=== PATIENT | female | born 1945 | race African-American/Black ===

== ENCOUNTER 2016-10-22 08:29 | Inpatient (IN) | payer OTHER ==
[2016-10-22 08:44] VITALS: BMI 20.5
[2016-10-22] MEDS ORDERED: PANTOPRAZOLE SODIUM 40 MG in SODIUM CHLORIDE 100 ML IVPB ONE (09:21)
[2016-10-22] MEDS ORDERED: MAG HYDROX/AL HYDROX/SIMETH 355 ML ORAL.SUSP PO ONE (09:21)
[2016-10-22 09:22] LABS: EOSINOPHIL 0.5 % (0-4.5); MCH 24.7 pg (25.7-33.7); MCHC 33.2 g/dl (32.0-36.0); MEAN CELL VOLUME 74.5 fl (80-96); MEAN PLT VOLUME 8.5 fl (7.5-11.1); NEUTROPHILS 79.4 % (42.8-82.8); PLATELET COUNT 213 K/MM3 (134-434); RDW 18.5 % (11.6-15.6); WHITE BLOOD COUNT 7.4 K/mm3 (4.0-10.0)
[2016-10-22 09:28] LABS: URINE APPEARANCE CLEAR; URINE BILIRUBIN NEGATIVE (NEGATIVE); URINE BLOOD NEGATIVE (NEGATIVE); URINE COLOR LTYELLOW; URINE GLUCOSE (UA) NEGATIVE (NEGATIVE); URINE KETONE NEGATIVE (NEGATIVE); URINE LEUK ESTERASE NEGATIVE (NEGATIVE); URINE NITRITE NEGATIVE (NEGATIVE); URINE UROBILINOGEN NEGATIVE E.U./dl (0.2-1.0)
[2016-10-22 09:30] LABS: URINE PROTEIN 2+ (NEGATIVE)
--- NOTE | 2016-10-22 09:31 | PDOC ---
History of Present Illness - General Chief Complaint: Pain, Acute Stated Complaint: ABD PAIN Time Seen by Provider: 10/22/16 08:56 History Source: Patient Exam Limitations: Language Barrier - History of Present Illness Travel History: No Initial Comments: 10/22/16 10:17 71-year-old female history of htn, gerd, sickle cell/thalassemia, presenst with LUQ pain x 1 month ago but worsened over the past 2 days - pt states when she eats she feels nauseus, the pain use to come and go but now is more persisetnt. The pt denies any vomiting, diaphoresis, fever/chills, dysuria, diarrhea, melena , bpr. The pt notes her pain is associated whith BENITEZ. pt endorses having decraesed appetite since this started pt notes her pain was similar to the pain that she had a few years ago here in the hospital. pts history was taken with assistance of [employer] certified court/medical interpreter [id number] pt is a poor historian even with certified court/medical interpreter. 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) Past History - Past Medical History Allergies/Adverse Reactions: Allergies Allergy/AdvReac Type Severity Reaction Status Date / Time fentanyl Allergy Severe Difficulty Verified 10/22/16 09:12 Breathing morphine Allergy Severe Difficulty Verified 10/22/16 08:39 Breathing Home Medications: Ambulatory Orders Aspirin [ASA -] 81 mg PO DAILY #30 tab.chew 01/01/16 Venlafaxine HCl [Effexor -] 37.5 mg PO DAILY 10/22/16 Anemia: Yes (sickle cell) GI Disorders: Yes (gerd, H PYLORI) HTN: Yes Suicide Attempt (Hx): No - Immunization History Immunization Up to Date: No - Psycho/Social/Smoking Cessation Hx Anxiety: No Suicidal Ideation: No Smoking Status: No Smoking History: Never smoked Have you smoked in the past 12 months: No Number of Cigarettes Smoked Daily: 0 Hx Alcohol Use: No Drug/Substance Use Hx: No Substance Use Type: None Hx Substance Use Treatment: No Review of Systems - Review of Systems Able to Perform ROS?: Yes Comments:: 10/22/16 10:21 Constitutional - +decreased appetitei no reported Fever, Chills, weakness, HEENT: no reported vision changes, sore throat Respiratory: +benitez no reported cough, sob, hemoptysis Cardiac: no reported chest pain, palpitations, light headedness, leg swelling Abd/GI: + abd pain, no reported nausea, vomiting, blood per rectum, melena, diarrhea : no reported dysuria, frequency, discharge Musculskelatal - no reported back pain, joint swelling skin - no reported bruising, erythema, rash neurological: no reported headache, numbness, focal weakness, tingling, ataxia, weakness hematologic: no reported anemia, easy bruising, easy bleeding *Physical Exam - Vital Signs Last Vital Signs Temp Pulse Resp BP Pulse Ox 98.5 F 79 19 180/67 98 10/22/16 08:39 10/22/16 08:39 10/22/16 08:39 10/22/16 08:39 10/22/16 09:00 - Physical Exam Comments: 10/22/16 10:22 GENERAL: The patient is awake, alert, and fully oriented, Nontoxic - in no acute distress. HEAD: Normocephalic, atraumatic. EYES: extraocular movements intact, sclera anicteric, conjunctiva clear. ENT: Normal voice, Moist mucous membranes. NECK: Normal range of motion, supple LUNGS: Breath sounds equal, clear to auscultation bilaterally. No wheezes, no rhonchi, no rales. HEART: Regular rate and rhythm, normal S1 and S2 without murmur, rub or gallop. ABDOMEN: Soft, nondistended mild LUQ trenderness, normoactive bowel sounds. No guarding, no rebound. . No CVA tenderness EXTREMITIES: Normal range of motion, no edema. No clubbing or cyanosis. No cords, erythema, or tenderness. NEUROLOGICAL: No facial assymetry, Normal speech, moving all 4 extremities spontaneously and symmetrically PSYCH: Normal mood, normal affect. SKIN: Warm, Dry, normal turgor, Heart Score/ECG Review - ECG Impressions Comment:: 10/22/16 10:17 Twelve-lead EKG was performed and reviewed by me. There is normal sinus rhythm with a normal rate. Rate of 69 The axis is normal. Voltage criteria for LVH The intervals are normal. There is normal R wave progression Nonspecific ST-T wave changes ED Treatment Course - LABORATORY CBC & Chemistry Diagram: 10/22/16 09:15 10/22/16 09:15 - ADDITIONAL ORDERS Additional order review: Laboratory Results 10/22/16 09:15 Urine Color Ltyellow Urine Appearance Clear Urine pH 6.0 D Ur Specific [place] 1.009 Urine Protein 2+ H Urine Glucose (UA) Negative Urine Ketones Negative Urine Blood Negative Urine Nitrite Negative Urine Bilirubin Negative Urine Urobilinogen Negative Ur Leukocyte Esterase Negative 10/22/16 09:15 RBC 2.48 L D MCV 74.5 L MCHC 33.2 RDW 18.5 H D MPV 8.5 Neutrophils % 79.4 D Lymphocytes % 12.1 D Monocytes % 7.0 Eosinophils % 0.5 D Basophils % 1.0 Medical Decision Making - Medical Decision Making 10/22/16 10:23 71-year-old female history of sickle cell/thalesemia, hypertension presenting with complaint of left upper quadrant pain for approximately 1 month, worsening over the past 2 days, associated with shortness of breath, and feels similar to prior episodes of pain - without any systemic complaints including fevers, chills, cough. On exam the patient's exam reveals a fairly unimpressive abdomin , with mild left upper quadrant tenderness. The patient's blood work was noted for anemia - As the patient's symptoms were similar to prior presentation when she was also anemic I suspect this might be her sickle cell pain crisis Also consider possible pancreatitis, gastritis Also consider possible ACS due to location of her pain and age/risk factors - will send cardiac profile as well as EKG for screening We'll transfuse the patient for her anemia with 2u prbc We'll give the patient protonix, Maalox Will admit for further management 10/22/16 11:13 no acute changes on her cxr trop at 0.09 - will admit to tele until 2nd trop to r.o acs will page dr. anderson 10/22/16 11:[address] anderson agreed with admission for further management of LUQ - agree w/ transfusion will place in tele, requests consult with dr. moyer Case discussed in detail with admitting physician including history, physical exam and ancillary studies. Admitting physician has assumed care for the patient, will follow all pending diagnostics and will complete the evaluation and treatment. *DC/Admit/Observation/Transfer Diagnosis at time of Disposition: Sickle cell crisis Abdominal pain Qualifiers: Abdominal location: left upper quadrant Qualified Code(s): R10.12 - Left upper quadrant pain - Discharge Dispostion Admit: Yes - Referrals Referrals: Parag Montalvo MD [Primary Care Provider] -
[2016-10-22 09:47] LABS: ALBUMIN 4.2 g/dl (3.4-5.0); BILIRUBIN,TOTAL 0.8 mg/dL (0.2-1.0); CALCIUM 8.8 mg/dL (8.5-10.1); CREATININE 1.3 mg/dL (0.55-1.02); TOT PROT 7.1 g/dl (6.4-8.2)
[2016-10-22] MEDS ORDERED: MAG HYDROX/AL HYDROX/SIMETH 30 ML UNIT-DOSE CUP ONE (09:48)
[2016-10-22] MEDS ORDERED: PANTOPRAZOLE SODIUM 40 MG VIAL ONE (09:49)
[2016-10-22 09:51] LABS: TROPONIN I 0.09 ng/ml (0.00-0.05)
--- NOTE | 2016-10-22 10:47 | EKG ---
Test Reason : Blood Pressure : / mmHG Vent. Rate : 069 BPM Atrial Rate : 069 BPM P-R Int : 154 ms QRS Dur : 078 ms QT Int : 414 ms P-R-T Axes : 076 047 037 degrees QTc Int : 443 ms NORMAL SINUS RHYTHM VOLTAGE CRITERIA FOR LEFT VENTRICULAR HYPERTROPHY ABNORMAL ECG WHEN COMPARED WITH ECG OF 28-DEC-2015 21:24, NO SIGNIFICANT CHANGE WAS FOUND Confirmed by JOLLY SELLERS, RODY ([id number]) on 10/22/2016 10:46:57 AM Referred By: Confirmed By:RODY AZEVEDO MD
[2016-10-22] MEDS ORDERED: ACETAMINOPHEN 325 MG TABLET (FP) PO ONE (11:53)
[2016-10-22] MEDS ORDERED: ACETAMINOPHEN 325 MG TABLET (FP) ONE (12:09)
[2016-10-22 12:33] LABS: ANISOCYTOSIS 2+; HYPOCHROMIA 2+; POIKILOCYTOSIS 1+; POLYCHROMASIA 2+
--- NOTE | 2016-10-22 16:06 | CON.CARD ---
Cardiology Consult (text) - Consultation Consultation Note: CC: CP 69 year old woman with a history of HTN, sickle cell disease, borderline cardiomyopathy, PAF vs PSVT presents with abdominal/chest pain/sob and presumed sickle cell crisis. Did not f/u with cards at last hospitalization. States for the past month abdominal pain (similar to pain crisis), palps with associated leg weakness. no orthopnea, pnd, le edema, dizziness, sob. no f/c/s, n/v/d, cough, congestion. pmhx/pshx: per hpi social hx: no tob, etoh or illicits fam hx: no cardiac disease ros: per hi Vital Signs - 24 hr 10/22/16 10/22/16 10/22/16 08:39 09:00 12:00 Temperature 98.5 F 98.6 F Pulse Rate 79 Pulse Rate [ 70 Apical] Respiratory 19 20 Rate Blood Pressure 180/67 Blood Pressure 172/56 [Right Arm] O2 Sat by Pulse 95 98 96 Oximetry (%) 10/22/16 12:15 Temperature 98.1 F Pulse Rate Pulse Rate [ 76 Apical] Respiratory 18 Rate Blood Pressure Blood Pressure 172/66 [Right Arm] O2 Sat by Pulse 96 Oximetry (%) NAD, calm no jvd, neck supple CTAB, nl effort RRR nl s1, s2 no mrg + bs soft epigastric tenderness, nd no e/c/c + dp/pt aaox3 no jaundice, diaphoresis. CBC, BMP 10/22/16 09:15 10/22/16 09:15 Laboratory Tests 10/22/16 10/22/16 09:15 09:15 Total Bilirubin 0.8 AST 33 D ALT 26 Alkaline Phosphatase 131 H D Creatine Kinase 153 D CK-MB (CK-2) < 1.000 Troponin I 0.09 H Albumin 4.2 cxr: clear ekg: nsr, lvh, no ischemic changes prior echo: mild lv dilation, low normal lv systolic fn. nl rv. mild lae. mod mr, 1+ ar/tr 69 year old woman with a history of HTN, sickle cell disease, borderline cardiomyopathy, PAF vs PSVT presents with abdominal/chest pain/sob and presumed sickle cell crisis. Sickle Cell crisis/anemia -as per Med/Heme Chest pain - more epigastric pain. Chronic x 1 month and typical of prior sickle cell episodes. EKG without ischemic changes. trop with intermediate elevation. Can trend, but unlikely to be acs. - would monitor on telemetry b/c of associated palps and h/o svt Mild LV dysfunction (low normal on prior echo) - reassess with repeat echo - euvolemic HTN - becuase of hx of lv dysfunction and h/o svt would initiate therapy with carvedilol. Patient reluctant to take medications, unclear if she will continue as outpatient. - pain control per pmd PAF vs PSVT- self limited on prior admit. - + palps, would recommend telemetry monitoring if possible. - on prior admit couldn't r/o PAF. Family declined empiric AC. Did not f/u with cards for event monitoring. CKD vs nancy - con't to monitor, unclear baseline
[2016-10-22] MEDS ORDERED: DEXTROSE 5%-0.45% SALINE 1,000 ML IV SCH (18:45)
[2016-10-22 19:59] LABS: TROPONIN I 0.1 ng/ml (0.00-0.05)
[2016-10-22] MEDS: HEPARIN NA (PORCINE) 5,000 UNITS/ML 1ML VIAL SQ SCH (21:17)
[2016-10-22] MEDS: ACETAMINOPHEN 325 MG TABLET (FP) PO PRN (21:26)
[2016-10-22] MEDS ORDERED: PANTOPRAZOLE 40 MG TABLET (FP) PO ONE (21:45)
[2016-10-22] MEDS: VENLAFAXINE HCL 37.5 MG E.R. CAPSULE (FP) PO SCH (22:11)
--- NOTE | 2016-10-22 23:47 | HP ---
Admitting History and Physical - Admission Chief Complaint: abdominal pain History of Present Illness: Pt is a 71 y/o female w/ most of the history being taken from the chart bc pt does not speak macedonian clearly. Pt has a PMH significant for HTN, parosymal afib/PSVT, cardiomyopathy, sickle cell disease, depression and GERD. Pt presented to the ER 2-3 day h/o abdominal pain wc is mostly LUQ, nonradiating and associated w/ nausea. In the ER pt found to have H/H of 6.1/18.4 and troponin of 0.09. History Source: Patient, Medical Record - Past Medical History Cardiovascular: Yes: HTN Gastrointestinal: Yes: GERD ...: No Heme/Onc: Yes: Sickle Cell Disease - Past Surgical History Past Surgical History: Yes: None - Smoking History Smoking history: Never smoked Have you smoked in the past 12 months: No Aproximately how many cigarettes per day: 0 - Alcohol/Substance Use Hx Alcohol Use: No - Social History ADL: Independent History of Recent Travel: No Home Medications - Allergies Allergies/Adverse Reactions: Allergies Allergy/AdvReac Type Severity Reaction Status Date / Time fentanyl Allergy Severe Difficulty Verified 10/22/16 09:12 Breathing morphine Allergy Severe Difficulty Verified 10/22/16 08:39 Breathing - Home Medications Home Medications: Ambulatory Orders Aspirin [ASA -] 81 mg PO DAILY #30 tab.chew 01/01/16 Venlafaxine HCl [Effexor -] 37.5 mg PO DAILY 10/22/16 Family Disease History - Family Disease History Family History: Unable to Obtain Review of Systems - Review of Systems Constitutional: reports: No Symptoms Eyes: reports: No Symptoms HENT: reports: No Symptoms Neck: reports: No Symptoms Cardiovascular: reports: Chest Pain Respiratory: reports: No Symptoms Gastrointestinal: reports: Abdominal Pain Physical Examination Vital Signs: Vital Signs Temperature 99.4 F 10/22/16 18:58 Pulse Rate 74 10/22/16 18:58 Respiratory Rate 18 10/22/16 18:58 Blood Pressure 151/73 10/22/16 18:58 O2 Sat by Pulse Oximetry (%) 97 10/22/16 18:58 Constitutional: Yes: Well Nourished HENT: Yes: WNL Neck: Yes: Supple Cardiovascular: Yes: WNL, Regular Rate and Rhythm Respiratory: Yes: WNL, Regular, CTA Bilaterally Gastrointestinal: Yes: WNL, Normal Bowel Sounds, Soft, Tenderness ((+) tenderness LUQ no guarding/rebound) Problem List - Problems (1) Sickle cell crisis Assessment/Plan: Pt transfused 2 units PRBC's Retic count elevated Follow H/H Heme consult Cont IVF Pain managed w/ tylenol Code(s): D57.00 - HB-SS DISEASE WITH CRISIS, UNSPECIFIED (2) Chest pain Assessment/Plan: Admit to tele Trend troponin ?Demand ischemia due to anemia As per cardio Check echo Cont asa Code(s): R07.9 - CHEST PAIN, UNSPECIFIED (3) Hypertension Assessment/Plan: Bp elevated Await echo Code(s): I10 - ESSENTIAL (PRIMARY) HYPERTENSION (4) Renal insufficiency, mild Code(s): N28.9 - DISORDER OF KIDNEY AND URETER, UNSPECIFIED Assessment/Plan 1. Abdominal pain ?LUQ abdominal pain w/ tenderness ?Due to GERD Check abdominal US ?Cardiac in origin
[2016-10-23] MEDS: ACETAMINOPHEN 325 MG TABLET (FP) PO PRN (06:15)
[2016-10-23 08:33] LABS: BASOPHIL 0.7 % (0-2.0); EOSINOPHIL 2.1 % (0-4.5); MCH 25.4 pg (25.7-33.7); MCHC 33.3 g/dl (32.0-36.0); MEAN CELL VOLUME 76.3 fl (80-96); NEUTROPHILS 64.4 % (42.8-82.8); PLATELET COUNT 212 K/MM3 (134-434); WHITE BLOOD COUNT 5.5 K/mm3 (4.0-10.0)
[2016-10-23 09:15] LABS: ALBUMIN 3.9 g/dl (3.4-5.0); BILIRUBIN,TOTAL 1.4 mg/dL (0.2-1.0); CALCIUM 8.6 mg/dL (8.5-10.1); CREATININE 1.3 mg/dL (0.55-1.02); TOT PROT 6.9 g/dl (6.4-8.2)
[2016-10-23 09:19] LABS: TROPONIN I 0.09 ng/ml (0.00-0.05)
[2016-10-23] MEDS ORDERED: KETOROLAC TROMETHAMINE 30 MG/1 ML VIAL IM PRN (09:54)
--- NOTE | 2016-10-23 09:57 | PN ---
Progress Note (short form) - Note Progress Note: s: no sob palps dizzy; +rib pain under left breast, tender to palpation o: Vital Signs Period Temp Pulse Resp BP Sys/Truong Pulse Ox Last 24 Hr 98.1 F-99.4 F 70-78 18-20 137-176/56-73 95-97 mild distress from pain no jvd, neck supple CTAB, nl effort RRR nl s1, s2 no mrg no e/c/c aaox3 no jaundice, diaphoresis Current Medications Generic Name Dose Route Start Last Admin Trade Name Freq PRN Reason Stop Dose Admin Acetaminophen 650 mg 10/22/16 18:34 10/23/16 06:15 Tylenol - PO 650 mg Q4H PRN Administration FEVER OR PAIN Aspirin 81 mg 10/23/16 10:00 Asa - PO DAILY JERICA Carvedilol 3.125 mg 10/23/16 10:00 Coreg - PO BID JERICA Heparin Sodium (Porcine) 5,000 unit 10/22/16 22:00 10/22/16 21:17 Heparin - SQ 5,000 unit BID JERICA Administration Dextrose/Sodium Chloride 1,000 mls @ 75 mls/hr 10/22/16 18:45 10/22/16 21:12 D5-1/2ns - IV 75 mls/hr ASDIR JERICA Administration Influenza Virus Vaccine 45 mcg 10/23/16 10:00 Fluvirin IM 10/23/16 10:01 .ONCE ONE Ketorolac Tromethamine 30 mg 10/23/16 09:54 Toradol Injection - IM 10/28/16 09:53 Q6H PRN Pantoprazole Sodium 40 mg 10/23/16 10:00 Protonix - PO DAILY JERICA Venlafaxine HCl 37.5 mg 10/22/16 18:45 10/22/16 22:11 Effexor Xr - PO 37.5 mg DAILY JERICA Administration CBC, BMP 10/23/16 06:20 10/23/16 06:20 cxr: clear ekg: nsr, lvh, no ischemic changes prior echo: mild lv dilation, low normal lv systolic fn. nl rv. mild lae. mod mr, 1+ ar/tr tele: sr a/p: 69 year old woman with a history of HTN, sickle cell disease, borderline cardiomyopathy, PAF vs PSVT presents with abdominal/chest pain/sob and presumed sickle cell crisis. Sickle Cell crisis/anemia -as per Med/Heme Chest pain - does not seem cardiac. Chronic x 1 month and typical of prior sickle cell episodes. EKG without ischemic changes. trop with intermediate elevation with flat trend and nl ck not consistent with acs. - would monitor on telemetry b/c of associated palps and h/o svt Mild LV dysfunction (low normal on prior echo) - reassess with repeat echo, pending - euvolemic, ok for ivfs if needed HTN - because of hx of lv dysfunction and h/o svt would initiate therapy with carvedilol, has been started here. - pain control per pmd PAF vs PSVT - self limited on prior admit. - + palps, cont tele, no arrhythmias so far - on prior admit couldn't r/o PAF. Family declined empiric AC and likely not a good candidate regardless given sickle cell anemia with hgb in 6s here. Did not f/u with cards for event monitoring. CKD vs nancy - con't to monitor, unclear baseline
[2016-10-23] MEDS ORDERED: INFLUENZA VACCINE 45 MCG/0.5 ML (MDV 16-17) IM ONE (10:00)
[2016-10-23] MEDS ORDERED: PANTOPRAZOLE 40 MG TABLET (FP) PO SCH (10:00)
[2016-10-23] MEDS: ASPIRIN 81 MG CHEWABLE TABLETS PO SCH (10:16)
[2016-10-23] MEDS ORDERED: KETOROLAC TROMETHAMINE 30 MG/1 ML VIAL IVPUSH PRN ×2 (10:19→11:10)
[2016-10-23] MEDS: HEPARIN NA (PORCINE) 5,000 UNITS/ML 1ML VIAL SQ SCH ×2 (10:19→22:10)
[2016-10-23] MEDS: CARVEDILOL 3.125 MG TABLET (FP) PO SCH ×3 (10:33→21:35)
--- NOTE | 2016-10-23 10:47 | PN ---
Progress Note, Physician Chief Complaint: complaining of left rib pain s/p 2 units prbc - Current Medication List Current Medications: Active Medications Acetaminophen (Tylenol -) 650 mg PO Q4H PRN PRN Reason: FEVER OR PAIN Last Admin: 10/23/16 06:15 Dose: 650 mg Aspirin (Asa -) 81 mg PO DAILY [facility] Last Admin: 10/23/16 10:16 Dose: 81 mg Carvedilol (Coreg -) 3.125 mg PO BID [facility] Last Admin: 10/23/16 10:33 Dose: 3.125 mg Heparin Sodium (Porcine) (Heparin -) 5,000 unit SQ BID [facility] Last Admin: 10/23/16 10:19 Dose: 5,000 unit Dextrose/Sodium Chloride (D5-1/2ns -) 1,000 mls @ 75 mls/hr IV ASDIR [facility] Last Admin: 10/22/16 21:12 Dose: 75 mls/hr Ketorolac Tromethamine (Toradol Injection -) 30 mg IVPUSH Q6H PRN Stop: 10/28/16 09:53 Last Admin: 10/23/16 10:00 Dose: 30 mg Pantoprazole Sodium (Protonix -) 40 mg PO DAILY [facility] Last Admin: 10/23/16 10:27 Dose: 40 mg Venlafaxine HCl (Effexor Xr -) 37.5 mg PO DAILY [facility] Last Admin: 10/22/16 22:11 Dose: 37.5 mg - Objective Vital Signs: Vital Signs Temperature 98.1 F 10/23/16 06:00 Pulse Rate 70 10/23/16 06:00 Respiratory Rate 18 10/23/16 06:00 Blood Pressure 137/66 10/23/16 06:00 O2 Sat by Pulse Oximetry (%) 95 10/22/16 21:00 Constitutional: Yes: Anxious, Mild Distress Neck: Yes: Trachea Midline Cardiovascular: Yes: Regular Rate and Rhythm, S1, S2, Other (left sided rib tenderness to palpation) Respiratory: Yes: CTA Bilaterally Gastrointestinal: Yes: Normal Bowel Sounds, Soft Edema: No Neurological: Yes: Alert, Oriented Labs: CBC, BMP 10/23/16 06:20 10/23/16 06:20 Problem List - Problems (1) Sickle cell crisis Assessment/Plan: s/p 2 unit prbc rectic hig heme eval ivf [place] control splenic atrophy on ultrasound Code(s): D57.00 - HB-SS DISEASE WITH CRISIS, UNSPECIFIED (2) Chest pain Assessment/Plan: sec to sickle cell crisis pain control fluids Code(s): R07.9 - CHEST PAIN, UNSPECIFIED (3) Hypertension Assessment/Plan: carvedilol Code(s): I10 - ESSENTIAL (PRIMARY) HYPERTENSION (4) Renal insufficiency, mild Assessment/Plan: hydration Code(s): N28.9 - DISORDER OF KIDNEY AND URETER, UNSPECIFIED
[2016-10-23] MEDS ORDERED: LIDOCAINE 5% TOPICAL PATCH TP SCH (11:30)
[2016-10-23] MEDS ORDERED: HYDROmorphone HCL CARPU-JECT 1 MG/1 ML DISP.SYRIN IVPB PRN (11:38)
[2016-10-23] MEDS: VENLAFAXINE HCL 37.5 MG E.R. CAPSULE (FP) PO SCH (13:03)
[2016-10-23] MEDS: FOLIC ACID 1 MG TABLET (FP) PO SCH (13:04)
[2016-10-23] MEDS: DEXTROSE 5%-0.45% SALINE 1,000 ML IV SCH ×2 (13:04→20:03)
--- NOTE | 2016-10-23 15:40 | CONSULT ---
Consult - text type - Consultation Consultation Note: PAtient seen and examined 10/22 and 10/24/15 71-year-old female history of htn, gerd, sickle beta thalassemia, presents with epigastric, LUQ pain x 1 month ago but worsened over the past 2 days - pt states when she eats she feels nauseous, . The pt denies any vomiting, diaphoresis, fever/chills, dysuria, diarrhea, melena, bpr. The pt notes her pain is associated whith LANE. 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) - Past Medical History SCD HTN GERD Allergies/Adverse Reactions: Allergies Allergy/AdvReac Type Severity Reaction Status Date / Time fentanyl Allergy Severe Difficulty Verified 10/22/16 09:12 Breathing morphine Allergy Severe Difficulty Verified 10/22/16 08:39 Breathing Home Medications: Ambulatory Orders Aspirin [ASA -] 81 mg PO DAILY #30 tab.chew 01/01/16 Venlafaxine HCl [Effexor -] 37.5 mg PO DAILY 10/22/16 - Vital Signs Last Vital Signs Temp Pulse Resp BP Pulse Ox 98.5 F 79 19 180/67 98 10/22/16 08:39 10/22/16 08:39 10/22/16 08:39 10/22/16 08:39 10/22/16 09:00 Last Vital Signs Temp Pulse Resp BP Pulse Ox 98.2 F 58 L 20 146/62 94 L 10/23/16 14:00 10/23/16 14:00 10/23/16 14:00 10/23/16 14:00 10/23/16 09:30 Cor: RSR, No murmurs, No gallops Lungs: Clear to P&A Abd: Soft, Normal bowel sounds, No organomegaly Ext:No significant edema Skin: No rashes, Integument intact Abnormal Lab Results 10/22/16 10/22/16 10/23/16 10:00 19:20 06:20 RBC 3.41 L D Hgb 8.7 L D Hct 26.0 L D MCV 76.3 L RDW 17.0 H Retic Count Chloride Anion Gap Creatinine Random Glucose Total Bilirubin Troponin I 0.10 H Crossmatch See Detail 10/23/16 10/23/16 10/23/16 06:20 06:20 11:29 RBC Hgb Hct MCV RDW Retic Count 4.48 H D Chloride 111 H Anion Gap 7 L Creatinine 1.3 H Random Glucose 107 H Total Bilirubin 1.4 H D Troponin I 0.09 H Crossmatch Current Medications Acetaminophen (Tylenol -) 650 mg PO Q4H PRN PRN Reason: FEVER OR PAIN Last Admin: 10/23/16 06:15 Dose: 650 mg Aspirin (Asa -) 81 mg PO DAILY [facility] Last Admin: 10/23/16 10:16 Dose: 81 mg Carvedilol (Coreg -) 3.125 mg PO BID [facility] Last Admin: 10/23/16 10:33 Dose: 3.125 mg Folic Acid (Folic Acid -) 1 mg PO DAILY [facility] Last Admin: 10/23/16 13:04 Dose: 1 mg Heparin Sodium (Porcine) (Heparin -) 5,000 unit SQ BID [facility] Last Admin: 10/23/16 10:19 Dose: 5,000 unit Hydromorphone HCl (Dilaudid Injection -) 1 mg IVPB Q4H PRN PRN Reason: PAIN Last Admin: 10/23/16 12:32 Dose: 1 mg Dextrose/Sodium Chloride (D5-1/2ns -) 1,000 mls @ 75 mls/hr IV ASDIR [facility] Stop: 10/25/16 18:44 Last Admin: 10/23/16 13:04 Dose: 75 mls/hr Pantoprazole Sodium (Protonix -) 40 mg PO DAILY [facility] Last Admin: 10/23/16 10:27 Dose: 40 mg Venlafaxine HCl (Effexor Xr -) 37.5 mg PO DAILY [facility] Last Admin: 10/23/16 13:03 Dose: 37.5 mg A/P 71-year-old female history of sickle beta thalesemia, hypertension presenting with c/o left upper quadrant pain for approximately 1 month, worsening over the past 2 days, associated with shortness of breath, and feels similar to prior episodes of pain - without any systemic complaints including fevers, chills, cough. Also with pain in legs sickle pain crisis hemolysis will check LDH/retic count/iron studies transfuse PRBCs [address] chest reviewed --RLL lung nosule, stable No e/o acute chest syndrome gentle hydration/folic acid/dvt prophylaxis will follow
--- NOTE | 2016-10-23 21:26 | CON.GI ---
Consult Consult Specialty:: GASTROENTEROLOGY Reason for Consultation:: LEFT SIDED PAIN - History of Present Illness Chief Complaint: LEFT SIDED UPPER ABDOMINAL LOWER CHEST PAIN History of Present Illness: 71 YEAR OLD FEMALE WITH SCC C/O LEFT SIDED ABDOMINAL AND LOWER LEFT THORACIC PAIN MAINLY ON HER RIBS. SHE HAS NO SOB, NO RUQ PAIN, NO FEVER. SHE LOOKS COMFORTABLE AND IS EATING . SHE DENIES VOMITING, MELENA AND BRBPR - History Source History Provided By: Patient - Past Medical History Cardio/Vascular: Yes: HTN, Other (CARDIOMYOPATHY) Gastrointestinal: Yes: GERD ...: No Heme/Onc: Yes: Anemia, Sickle Cell Disease - Past Surgical History Past Surgical History: Yes: None - Alcohol/Substance Use Hx Alcohol Use: No - Smoking History Smoking history: Never smoked Have you smoked in the past 12 months: No Aproximately how many cigarettes per day: 0 - Social History Usual Living Arrangement: With Child ADL: Independent History of Recent Travel: No Home Medications - Allergies Allergies/Adverse Reactions: Allergies Allergy/AdvReac Type Severity Reaction Status Date / Time fentanyl Allergy Severe Difficulty Verified 10/22/16 09:12 Breathing morphine Allergy Severe Difficulty Verified 10/22/16 08:39 Breathing - Home Medications Home Medications: Ambulatory Orders Aspirin [ASA -] 81 mg PO DAILY #30 tab.chew 01/01/16 Venlafaxine HCl [Effexor -] 37.5 mg PO DAILY 10/22/16 Family Disease History - Family Disease History Family History: Unable to Obtain Review of Systems - Review of Systems Constitutional: reports: No Symptoms Eyes: reports: No Symptoms HENT: reports: No Symptoms Neck: reports: No Symptoms Cardiovascular: reports: Chest Pain Respiratory: reports: No Symptoms Gastrointestinal: reports: Abdominal Pain, Other ( HPI) Musculoskeletal: reports: Muscle Pain, Other (RIB PAIN) Integumentary: reports: No Symptoms Neurological: reports: No Symptoms Endocrine: reports: No Symptoms Hematology/Lymphatic: reports: No Symptoms Physical Exam-GI Vital Signs: Vital Signs Temperature 98.6 F 10/23/16 20:10 Pulse Rate 73 10/23/16 20:10 Respiratory Rate 16 10/23/16 20:10 Blood Pressure 175/80 10/23/16 20:10 O2 Sat by Pulse Oximetry (%) 94 L 10/23/16 20:31 Constitutional: Yes: Well Nourished Eyes: Yes: Conjunctiva Clear HENT: Yes: Normocephalic Neck: Yes: Supple Cardiovascular: Yes: Regular Rate and Rhythm Respiratory: Yes: Regular Gastrointestinal Inspection: Yes: WNL ...Auscultate: Yes: Normoactive Bowel Sounds ...Palpate: Yes: Soft Genitourinary: Yes: WNL Extremities: Yes: WNL Neurological: Yes: WNL Labs: CBC, BMP 10/23/16 06:20 10/23/16 06:20 Laboratory Tests 10/22/16 09:15 Urine Color Ltyellow Urine Appearance Clear Urine pH 6.0 D Ur Specific Sterling 1.009 Urine Protein 2+ H Urine Glucose (UA) Negative Urine Ketones Negative Urine Blood Negative Urine Nitrite Negative Urine Bilirubin Negative Urine RBC None Urine WBC None Problem List - Problems (1) Sickle cell crisis Assessment/Plan: BASED ON THE EXAM AND THE IMAGING I SEE NO COMPLICATIONS OF SICKLE CELL DISEASE. SHE HAS NO GALLSTONES, HEPATIC SEQUESTRATION. HER SPLEEN IS ATROPHIC AND NOT ENLARGED. I THINK HER PAIN IS RELATED TO BONY PAIN. I WILL D/C PROTONIX AND ADD ZANTAC AND CARAFATE BID FOR HER GERD WHICH SEEMS STABLE. Code(s): D57.00 - HB-SS DISEASE WITH CRISIS, UNSPECIFIED (2) Abdominal pain Code(s): R10.9 - UNSPECIFIED ABDOMINAL PAIN Qualifiers: Abdominal location: left upper quadrant Qualified Code(s): R10.12 - Left upper quadrant pain
--- NOTE | 2016-10-23 22:05 | HOSP ---
Subjective - Review of Symptoms Subjective: I was paged by the nurse and informed me that patient is complaining of left sided chest pain. Immediately went to assess the patient. Family members ( Daughters) were at bed side and translated. A/c to the patient, she has been having chest pain on/off since a month, located on under the left breast, radiating towards her back, but not to the arms or jaws, 5/10 in intensity, sharp in quality, not associated with shortenss of breath, palpitation, nausea or vomiting. As per the nurse, her BP was elevated 190/85 mmHg and after getting coreg 3.125mg, BP was 170/80mmHg On Physical exam Vitals: 170/80mmHg P-70bpm RR-14 T-Afebrile General: Awake, alert, in no acute distress HEENT: EOM intact, no pallor or icterus. Chest: B/l lungs clear, no added sounds CVS: Regular, S1,S2, no murmur Abdomen: Soft, non tender, BS + Extremities: No peripheral edema Plan: Chest pain-R/O ACS Reviewed Dr. Hagen's note which says she has had chronic chest pain since a month and less likely cardiac in origin. Ordered Troponins, CBC, CMP, stat EKG Troponin decreased from 0.09--->0.08 Will repeat EKG tomorrow morning. Monitor for new symptoms Continuous cardiac monitoring. Illness, Investigation and Plan of care explained to the patient and her daughters. They verbalized understanding. Case discussed with Dr. Cooley. Physical Examination Vital Signs: Vital Signs Temperature 98.6 F 10/23/16 20:10 Pulse Rate 73 10/23/16 20:10 Respiratory Rate 16 10/23/16 20:10 Blood Pressure 175/80 10/23/16 20:10 O2 Sat by Pulse Oximetry (%) 94 L 10/23/16 20:31 Labs: CBC, BMP 10/23/16 06:20 10/23/16 06:20 Visit type - Emergency Visit Emergency Visit: Yes ED Registration Date: 10/22/16 Care time: The patient presented to the Emergency Department on the above date and was hospitalized for further evaluation of their emergent condition. - New Patient This patient is new to me today: Yes Date on this admission: 10/23/16 - Critical Care Critical Care patient: No
[2016-10-23] MEDS: RANITIDINE HCL 150 MG TABLET (FP) PO SCH (22:10)
[2016-10-23] MEDS: HYDROmorphone HCL CARPU-JECT 1 MG/1 ML DISP.SYRIN IVPB PRN (22:10)
[2016-10-23] MEDS: SUCRALFATE 1 GM TABLET (FP) PO SCH (22:16)
[2016-10-23 22:52] LABS: MCH 26.9 pg (25.7-33.7); MCHC 34.3 g/dl (32.0-36.0); MEAN CELL VOLUME 78.4 fl (80-96); RDW 17.5 % (11.6-15.6)
[2016-10-23 23:23] LABS: ALBUMIN 3.9 g/dl (3.4-5.0); BILIRUBIN,TOTAL 1.5 mg/dL (0.2-1.0); CALCIUM 8.5 mg/dL (8.5-10.1); CREATININE 1.4 mg/dL (0.55-1.02); TOT PROT 6.8 g/dl (6.4-8.2)
[2016-10-23 23:26] LABS: TROPONIN I 0.08 ng/ml (0.00-0.05)
[2016-10-23 23:53] LABS: MEAN PLT VOLUME 9.2 fl (7.5-11.1); PLATELET COUNT 193 K/MM3 (134-434)
[2016-10-23 23:54] LABS: PLATELET COMMENT2 NO CLUMPING NOTED; PLATELET COMMENT3 NO CLOTTING DETECTED; PLATELET ESTIMATE ADEQUATE (NORMAL)
[2016-10-24] MEDS: HYDROmorphone HCL CARPU-JECT 1 MG/1 ML DISP.SYRIN IVPB PRN ×2 (09:00→21:20)
[2016-10-24] MEDS: DEXTROSE 5%-0.45% SALINE 1,000 ML IV SCH ×2 (09:03→11:00)
[2016-10-24] MEDS: ASPIRIN 81 MG CHEWABLE TABLETS PO SCH (09:07)
[2016-10-24] MEDS: HEPARIN NA (PORCINE) 5,000 UNITS/ML 1ML VIAL SQ SCH ×2 (09:07→21:20)
[2016-10-24] MEDS: RANITIDINE HCL 150 MG TABLET (FP) PO SCH ×2 (09:07→21:19)
[2016-10-24] MEDS: FOLIC ACID 1 MG TABLET (FP) PO SCH (09:07)
[2016-10-24] MEDS: CARVEDILOL 3.125 MG TABLET (FP) PO SCH ×2 (09:07→21:19)
[2016-10-24] MEDS: VENLAFAXINE HCL 37.5 MG E.R. CAPSULE (FP) PO SCH (09:08)
[2016-10-24] MEDS: SUCRALFATE 1 GM TABLET (FP) PO SCH ×2 (09:08→21:19)
[2016-10-24 09:12] LABS: BASOPHIL 0.9 % (0-2.0); EOSINOPHIL 3.5 % (0-4.5); MCH 26.3 pg (25.7-33.7); MCHC 33.2 g/dl (32.0-36.0); MEAN PLT VOLUME 9.7 fl (7.5-11.1); NEUTROPHILS 63.4 % (42.8-82.8); PLATELET COUNT 184 K/MM3 (134-434); RDW 17.6 % (11.6-15.6); WHITE BLOOD COUNT 5.6 K/mm3 (4.0-10.0)
--- NOTE | 2016-10-24 09:22 | PN ---
Progress Note (short form) - Note Progress Note: s: no sob palps dizzy; less rib/chest pain o: Vital Signs Period Temp Pulse Resp BP Sys/Truong Pulse Ox Last 24 Hr 97.8 F-99.6 F 58-73 16-20 146-190/62-80 94-94 nad no jvd, neck supple CTAB, nl effort RRR nl s1, s2 no mrg no e/c/c aaox3 no jaundice, diaphoresis Current Medications Generic Name Dose Route Start Last Admin Trade Name Freq PRN Reason Stop Dose Admin Acetaminophen 650 mg 10/22/16 18:34 10/23/16 06:15 Tylenol - PO 650 mg Q4H PRN Administration FEVER OR PAIN Amlodipine Besylate 5 mg 10/24/16 10:00 10/24/16 09:06 Norvasc - PO 5 mg DAILY JERICA Administration Aspirin 81 mg 10/23/16 10:00 10/24/16 09:07 Asa - PO 81 mg DAILY JERICA Administration Carvedilol 3.125 mg 10/23/16 10:00 10/24/16 09:07 Coreg - PO 3.125 mg BID JERICA Administration Folic Acid 1 mg 10/23/16 11:15 10/24/16 09:07 Folic Acid - PO 1 mg DAILY JERICA Administration Heparin Sodium (Porcine) 5,000 unit 10/22/16 22:00 10/24/16 09:07 Heparin - SQ 5,000 unit BID JERICA Administration Hydromorphone HCl 0.5 mg 10/23/16 17:15 10/24/16 09:00 Dilaudid Injection - IVPB 0.5 mg Q4H PRN Administration PAIN Dextrose/Sodium Chloride 1,000 mls @ 75 mls/hr 10/23/16 11:32 10/24/16 09:03 D5-1/2ns - IV 10/25/16 18:44 75 mls/hr ASDIR JERICA Administration Ranitidine HCl 150 mg 10/23/16 22:00 10/24/16 09:07 Zantac - PO 150 mg BID JERICA Administration Sucralfate 1 gm 10/23/16 22:00 10/24/16 09:08 Carafate - PO 1 gm BID JERICA Administration Venlafaxine HCl 37.5 mg 10/22/16 18:45 10/24/16 09:08 Effexor Xr - PO 37.5 mg DAILY JERICA Administration Lab Results WBC 6.0 K/mm3 (4.0-10.0) 10/23/16 22:10 RBC 3.60 M/mm3 (3.60-5.2) 10/23/16 22:10 Hgb 9.7 GM/dL (10.7-15.3) L D 10/23/16 22:10 Hct 28.2 % (32.4-45.2) L 10/23/16 22:10 MCV 78.4 fl (80-96) L 10/23/16 22:10 MCHC 34.3 g/dl (32.0-36.0) 10/23/16 22:10 RDW 17.5 % (11.6-15.6) H 10/23/16 22:10 Plt Count 193 K/MM3 (134-434) 10/23/16 22:10 Sodium 143 mmol/L (136-145) 10/23/16 22:10 Potassium 5.2 mmol/L (3.5-5.1) H 10/23/16 22:10 Chloride 109 mmol/L (98-107) H 10/23/16 22:10 Carbon Dioxide 26 mmol/L (21-32) 10/23/16 22:10 Anion Gap 8 (8-16) 10/23/16 22:10 BUN 18 mg/dL (7-18) 10/23/16 22:10 Creatinine 1.4 mg/dL (0.55-1.02) H 10/23/16 22:10 Random Glucose 107 mg/dL (74-106) H 10/23/16 22:10 Calcium 8.5 mg/dL (8.5-10.1) 10/23/16 22:10 Blood Type O POSITIVE 10/22/16 10:00 Antibody Screen Negative 10/22/16 10:00 INR 1.03 (0.82-1.09) 10/24/16 06:00 cxr: clear ekg: nsr, lvh, no ischemic changes prior echo: mild lv dilation, low normal lv systolic fn. nl rv. mild lae. mod mr, 1+ ar/tr echo 10/2016: mild conc lvh, mod lve, low nl lvef, mod lae, nl rv, sev mr, mod tr, mild ar, mild-mod pr, rvsp 50-60 tele: sr, occ pvcs a/p: 69 year old woman with a history of HTN, sickle cell disease, borderline cardiomyopathy, PAF vs PSVT presents with abdominal/chest pain/sob and presumed sickle cell crisis. Sickle Cell crisis/anemia -as per Med/Heme Chest pain - does not seem cardiac, improving. Chronic x 1 month and typical of prior sickle cell episodes. EKG without ischemic changes. trop with intermediate elevation with flat trend and nl ck not consistent with acs. - would monitor on telemetry b/c of associated palps and h/o svt Mild LV dysfunction (low normal), MR: - repeat echo similar to prior except mr is now in severe range - euvolemic, no signs of symptomatic chf/mr so ok for ivfs if needed - will need f/u as outpt to monitor MR and decide upon need for eventual MVR if she agrees HTN - started on coreg here, bp still high, will add norvasc 5 as well - pain control PAF vs PSVT - self limited on prior admit. - + palps, cont tele, no arrhythmias so far - on prior admit couldn't r/o PAF. Family declined empiric AC and likely not a good candidate regardless given sickle cell anemia with hgb in 6s here. Did not f/u with cards for event monitoring. CKD vs nancy - con't to monitor, unclear baseline
[2016-10-24 09:24] LABS: INR 1.03 (0.82-1.09); PROTHROMBIN TIME (PATIENT) 11.3 SEC (9.98-11.88)
[2016-10-24 09:27] LABS: ACTIVATED PTT 31.1 SECONDS (26.9-34.4)
[2016-10-24 09:35] LABS: FERRITIN 1249.137 ng/ml (6.9-282.5)
[2016-10-24 09:36] LABS: ALBUMIN 3.8 g/dl (3.4-5.0); BILIRUBIN,TOTAL 1.2 mg/dL (0.2-1.0); CALCIUM 8.2 mg/dL (8.5-10.1); CREATININE 1.3 mg/dL (0.55-1.02); TOT PROT 6.7 g/dl (6.4-8.2)
[2016-10-24] MEDS ORDERED: amLODIPine BESYLATE 5 MG TABLET (FP) PO SCH (10:00)
--- NOTE | 2016-10-24 12:11 | PN ---
Progress Note (short form) - Note Progress Note: Patient seen in follow up. No events overnight. Denies worsened pain - controlled. Denies cough or SOB. Meds reviewed. Current Medications Generic Name Dose Route Start Last Admin Trade Name Freq PRN Reason Stop Dose Admin Acetaminophen 650 mg 10/22/16 18:34 10/23/16 06:15 Tylenol - PO 650 mg Q4H PRN Administration FEVER OR PAIN Amlodipine Besylate 5 mg 10/24/16 10:00 10/24/16 09:06 Norvasc - PO 5 mg DAILY JERICA Administration Aspirin 81 mg 10/23/16 10:00 10/24/16 09:07 Asa - PO 81 mg DAILY JERICA Administration Carvedilol 3.125 mg 10/23/16 10:00 10/24/16 09:07 Coreg - PO 3.125 mg BID JERICA Administration Folic Acid 1 mg 10/23/16 11:15 10/24/16 09:07 Folic Acid - PO 1 mg DAILY JERICA Administration Heparin Sodium (Porcine) 5,000 unit 10/22/16 22:00 10/24/16 09:07 Heparin - SQ 5,000 unit BID JERICA Administration Hydromorphone HCl 0.5 mg 10/23/16 17:15 10/24/16 09:00 Dilaudid Injection - IVPB 0.5 mg Q4H PRN Administration PAIN Dextrose/Sodium Chloride 1,000 mls @ 75 mls/hr 10/23/16 11:32 10/24/16 09:03 D5-1/2ns - IV 10/25/16 18:44 75 mls/hr ASDIR JERICA Administration Ranitidine HCl 150 mg 10/23/16 22:00 10/24/16 09:07 Zantac - PO 150 mg BID JERICA Administration Sucralfate 1 gm 10/23/16 22:00 10/24/16 09:08 Carafate - PO 1 gm BID JERICA Administration Venlafaxine HCl 37.5 mg 10/22/16 18:45 10/24/16 09:08 Effexor Xr - PO 37.5 mg DAILY JERICA Administration On exam: Last Vital Signs Temp Pulse Resp BP Pulse Ox 98.8 F 69 18 158/76 94 L 10/24/16 06:00 10/24/16 06:00 10/24/16 06:00 10/24/16 06:00 10/23/16 20:31 Looks comfortable. Well hydrated. Mild pallor. Not icteric. Chest: clear. Abd: SNT, no organomeagly. CVS: S1, S2, no gallops or murmurs. Neuro: Alert and oriented, non-focal. Skin: no rash Ext: no swelling. 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 US abdo unremarkable. Treat symptomatically as for sickle VOC. Ongoing hemolysis with appropriate reticulocyte response. Transfusion not indicated presently. Observation, can DC home when pain controlled.
--- NOTE | 2016-10-24 14:50 | EKG ---
Test Reason : Blood Pressure : / mmHG Vent. Rate : 059 BPM Atrial Rate : 059 BPM P-R Int : 156 ms QRS Dur : 078 ms QT Int : 462 ms P-R-T Axes : 065 055 024 degrees QTc Int : 457 ms POOR DATA QUALITY, INTERPRETATION MAY BE ADVERSELY AFFECTED SINUS BRADYCARDIA VOLTAGE CRITERIA FOR LEFT VENTRICULAR HYPERTROPHY ABNORMAL ECG WHEN COMPARED WITH ECG OF 22-OCT-2016 09:20, NO SIGNIFICANT CHANGE WAS FOUND Confirmed by TERRENCE VANG MD ([id number]) on 10/24/2016 2:49:50 PM Referred By: Confirmed By:TERRENCE VANG MD
--- NOTE | 2016-10-24 17:32 | PN ---
Progress Note, Physician History of Present Illness: Pt w/ lt groin pain still - Current Medication List Current Medications: Active Medications Acetaminophen (Tylenol -) 650 mg PO Q4H PRN PRN Reason: FEVER OR PAIN Last Admin: 10/23/16 06:15 Dose: 650 mg Amlodipine Besylate (Norvasc -) 5 mg PO DAILY [facility] Last Admin: 10/24/16 09:06 Dose: 5 mg Aspirin (Asa -) 81 mg PO DAILY [facility] Last Admin: 10/24/16 09:07 Dose: 81 mg Carvedilol (Coreg -) 3.125 mg PO BID [facility] Last Admin: 10/24/16 09:07 Dose: 3.125 mg Folic Acid (Folic Acid -) 1 mg PO DAILY [facility] Last Admin: 10/24/16 09:07 Dose: 1 mg Heparin Sodium (Porcine) (Heparin -) 5,000 unit SQ BID [facility] Last Admin: 10/24/16 09:07 Dose: 5,000 unit Hydromorphone HCl (Dilaudid Injection -) 0.5 mg IVPB Q4H PRN PRN Reason: PAIN Last Admin: 10/24/16 09:00 Dose: 0.5 mg Dextrose/Sodium Chloride (D5-1/2ns -) 1,000 mls @ 75 mls/hr IV ASDIR [facility] Stop: 10/25/16 18:44 Last Admin: 10/24/16 09:03 Dose: 75 mls/hr Ranitidine HCl (Zantac -) 150 mg PO BID [facility] Last Admin: 10/24/16 09:07 Dose: 150 mg Sucralfate (Carafate -) 1 gm PO BID [facility] Last Admin: 10/24/16 09:08 Dose: 1 gm Venlafaxine HCl (Effexor Xr -) 37.5 mg PO DAILY [facility] Last Admin: 10/24/16 09:08 Dose: 37.5 mg - Objective Vital Signs: Vital Signs Temperature 98.1 F 10/24/16 14:18 Pulse Rate 80 10/24/16 14:18 Respiratory Rate 20 10/24/16 14:18 Blood Pressure 174/82 10/24/16 14:18 O2 Sat by Pulse Oximetry (%) 96 10/24/16 09:00 Neck: Yes: Supple Cardiovascular: Yes: WNL, Regular Rate and Rhythm Respiratory: Yes: WNL, Regular, CTA Bilaterally Gastrointestinal: Yes: WNL, Normal Bowel Sounds, Soft Extremities: Yes: WNL Edema: No Labs: CBC, BMP 10/24/16 06:00 10/24/16 06:00 INR, PTT INR 1.03 (0.82-1.09) 10/24/16 06:00 Fibrinogen 254.0 mg/dL (238-498) 10/24/16 06:00 Problem List - Problems (1) Sickle cell crisis Assessment/Plan: S/P transfusion 2 units PRBC's Follow H/H Cont IVF Xray hip due to pain Probably related to sickle cell crisis Code(s): D57.00 - HB-SS DISEASE WITH CRISIS, UNSPECIFIED (2) Chest pain Code(s): R07.9 - CHEST PAIN, UNSPECIFIED (3) Hypertension Code(s): I10 - ESSENTIAL (PRIMARY) HYPERTENSION (4) Renal insufficiency, mild Code(s): N28.9 - DISORDER OF KIDNEY AND URETER, UNSPECIFIED
[2016-10-24] MEDS: ACETAMINOPHEN 325 MG TABLET (FP) PO PRN (18:25)
[2016-10-24] MEDS ORDERED: PT OWN MED DRAWER 7, Y5N ONE (21:15)
[2016-10-25] MEDS: DEXTROSE 5%-0.45% SALINE 1,000 ML IV SCH ×2 (05:00→11:40)
[2016-10-25] MEDS: ACETAMINOPHEN 325 MG TABLET (FP) PO PRN ×2 (05:07→21:15)
[2016-10-25] MEDS ORDERED: PT OWN MED DRAWER 7, Y5N ONE (08:09)
[2016-10-25] MEDS: HYDROmorphone HCL CARPU-JECT 1 MG/1 ML DISP.SYRIN IVPB PRN ×2 (08:22→19:45)
[2016-10-25] MEDS: HEPARIN NA (PORCINE) 5,000 UNITS/ML 1ML VIAL SQ SCH ×2 (09:00→21:16)
[2016-10-25] MEDS: VENLAFAXINE HCL 37.5 MG E.R. CAPSULE (FP) PO SCH (09:00)
[2016-10-25] MEDS: RANITIDINE HCL 150 MG TABLET (FP) PO SCH ×2 (09:00→21:15)
[2016-10-25] MEDS: amLODIPine BESYLATE 10 MG TABLET (FP) PO SCH (09:00)
[2016-10-25] MEDS: ASPIRIN 81 MG CHEWABLE TABLETS PO SCH (09:00)
[2016-10-25] MEDS: FOLIC ACID 1 MG TABLET (FP) PO SCH (09:00)
[2016-10-25] MEDS: CARVEDILOL 6.25 MG TABLET (FP) PO SCH ×2 (09:00→21:15)
[2016-10-25] MEDS: SUCRALFATE 1 GM TABLET (FP) PO SCH ×2 (09:00→21:51)
--- NOTE | 2016-10-25 09:30 | PN ---
Progress Note (short form) - Note Progress Note: s: no sob palps dizzy; less rib/chest pain o: Vital Signs Period Temp Pulse Resp BP Sys/Truong Pulse Ox Last 24 Hr 97.2 F-99.3 F 65-80 18-20 140-181/60-82 95-96 nad no jvd, neck supple CTAB, nl effort RRR nl s1, s2 no mrg no e/c/c aaox3 no jaundice, diaphoresis Current Medications Generic Name Dose Route Start Last Admin Trade Name Freq PRN Reason Stop Dose Admin Acetaminophen 650 mg 10/22/16 18:34 10/25/16 05:07 Tylenol - PO 650 mg Q4H PRN Administration FEVER OR PAIN Amlodipine Besylate 10 mg 10/25/16 08:02 10/25/16 09:00 Norvasc - PO 10 mg DAILY JERICA Administration Aspirin 81 mg 10/23/16 10:00 10/25/16 09:00 Asa - PO 81 mg DAILY JERICA Administration Carvedilol 6.25 mg 10/25/16 08:02 10/25/16 09:00 Coreg - PO 6.25 mg BID JERICA Administration Folic Acid 1 mg 10/23/16 11:15 10/25/16 09:00 Folic Acid - PO 1 mg DAILY JERICA Administration Heparin Sodium (Porcine) 5,000 unit 10/22/16 22:00 10/25/16 09:00 Heparin - SQ 5,000 unit BID JERICA Administration Hydromorphone HCl 0.5 mg 10/23/16 17:15 10/25/16 08:22 Dilaudid Injection - IVPB 0.5 mg Q4H PRN Administration PAIN Dextrose/Sodium Chloride 1,000 mls @ 75 mls/hr 10/23/16 11:32 10/25/16 05:00 D5-1/2ns - IV 10/25/16 18:44 75 mls/hr ASDIR JERICA Administration Ranitidine HCl 150 mg 10/23/16 22:00 10/25/16 09:00 Zantac - PO 150 mg BID JERICA Administration Sucralfate 1 gm 10/23/16 22:00 10/25/16 09:00 Carafate - PO 1 gm BID JERICA Administration Venlafaxine HCl 37.5 mg 10/22/16 18:45 10/25/16 09:00 Effexor Xr - PO 37.5 mg DAILY JERICA Administration CBC, BMP 10/24/16 06:00 10/24/16 06:00 cxr: clear ekg: nsr, lvh, no ischemic changes prior echo: mild lv dilation, low normal lv systolic fn. nl rv. mild lae. mod mr, 1+ ar/tr echo 10/2016: mild conc lvh, mod lve, low nl lvef, mod lae, nl rv, sev mr, mod tr, mild ar, mild-mod pr, rvsp 50-60 tele: sr, occ pvcs, brief pat a/p: 69 year old woman with a history of HTN, sickle cell disease, borderline cardiomyopathy, PAF vs PSVT presents with abdominal/chest pain/sob and presumed sickle cell crisis. Sickle Cell crisis/anemia -as per Med/Heme Chest pain - does not seem cardiac, improving. Chronic x 1 month and typical of prior sickle cell episodes. EKG without ischemic changes. trop with intermediate elevation with flat trend and nl ck not consistent with acs. Mild LV dysfunction (low normal), MR: - repeat echo similar to prior except mr is now in severe range - euvolemic, no signs of symptomatic chf/mr so ok for ivfs if needed - will need f/u as outpt to monitor MR and decide upon possible need for eventual MVR if she agrees HTN - started on coreg and norvasc here, bp still high, will increase coreg to 6.25 bid and increase norvasc to 10 qd - pain control PAF vs PSVT - self limited on prior admit. - tele here showing brief runs of likely PAT - will increase coreg, monitor on tele - on prior admit couldn't r/o PAF. Family declined empiric AC and likely not a good candidate regardless given sickle cell anemia with hgb in 6s here. Did not f/u with cards for event monitoring. CKD vs nancy - stable, unclear baseline
[2016-10-25 10:08] LABS: HEMATOCRIT 28.4 % (34.0-46.6)
--- NOTE | 2016-10-25 14:41 | PN ---
Progress Note (short form) - Note Progress Note: Patient seen in follow up. No events overnight. Denies worsened pain - controlled. Denies cough or SOB. Meds reviewed. Looks comfortable. Well hydrated. Mild pallor. Not icteric. Chest: clear. Abd: SNT, no organomeagly. CVS: S1, S2, no gallops or murmurs. Neuro: Alert and oriented, non-focal. Skin: no rash Ext: no swelling. Meds reviewed: Current Medications Generic Name Dose Route Start Last Admin Trade Name Freq PRN Reason Stop Dose Admin Acetaminophen 650 mg 10/22/16 18:34 10/25/16 05:07 Tylenol - PO 650 mg Q4H PRN Administration FEVER OR PAIN Amlodipine Besylate 10 mg 10/25/16 08:02 10/25/16 09:00 Norvasc - PO 10 mg DAILY JERICA Administration Aspirin 81 mg 10/23/16 10:00 10/25/16 09:00 Asa - PO 81 mg DAILY JERICA Administration Carvedilol 6.25 mg 10/25/16 08:02 10/25/16 09:00 Coreg - PO 6.25 mg BID JERICA Administration Folic Acid 1 mg 10/23/16 11:15 10/25/16 09:00 Folic Acid - PO 1 mg DAILY JERICA Administration Heparin Sodium (Porcine) 5,000 unit 10/22/16 22:00 10/25/16 09:00 Heparin - SQ 5,000 unit BID JERICA Administration Hydromorphone HCl 0.5 mg 10/23/16 17:15 10/25/16 08:22 Dilaudid Injection - IVPB 0.5 mg Q4H PRN Administration PAIN Dextrose/Sodium Chloride 1,000 mls @ 75 mls/hr 10/23/16 11:32 10/25/16 11:40 D5-1/2ns - IV 10/25/16 18:44 Not Given ASDIR JERICA Ranitidine HCl 150 mg 10/23/16 22:00 10/25/16 09:00 Zantac - PO 150 mg BID JERICA Administration Sucralfate 1 gm 10/23/16 22:00 10/25/16 09:00 Carafate - PO 1 gm BID JERICA Administration Venlafaxine HCl 37.5 mg 10/22/16 18:45 10/25/16 09:00 Effexor Xr - PO 37.5 mg DAILY JERICA Administration On exam: Last Vital Signs Temp Pulse Resp BP Pulse Ox 99.2 F 75 18 189/85 95 10/25/16 09:00 10/25/16 09:00 10/25/16 09:00 10/25/16 09:00 10/25/16 09:00 Looks comfortable. Well hydrated. Mild pallor. Not icteric. Chest: clear. Abd: SNT, no organomeagly. CVS: S1, S2, no gallops or murmurs. Neuro: Alert and oriented, non-focal. Skin: no rash Ext: no swelling. 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 US abdo unremarkable. Treat symptomatically as for sickle VOC. Ongoing hemolysis with appropriate reticulocyte response. Transfusion not indicated presently. Observation, can DC home when pain controlled.
[2016-10-25] MEDS: DOCUSATE SODIUM 100 MG CAPSULE (FP) PO SCH (21:15)
--- NOTE | 2016-10-25 22:06 | PN ---
Progress Note, Physician History of Present Illness: Pt w/ lt groin pain still - Current Medication List Current Medications: Active Medications Acetaminophen (Tylenol -) 650 mg PO Q4H PRN PRN Reason: FEVER OR PAIN Last Admin: 10/25/16 21:15 Dose: 650 mg Amlodipine Besylate (Norvasc -) 10 mg PO DAILY [facility] Last Admin: 10/25/16 09:00 Dose: 10 mg Aspirin (Asa -) 81 mg PO DAILY [facility] Last Admin: 10/25/16 09:00 Dose: 81 mg Carvedilol (Coreg -) 6.25 mg PO BID [facility] Last Admin: 10/25/16 21:15 Dose: 6.25 mg Docusate Sodium (Colace -) 300 mg PO HS [facility] Last Admin: 10/25/16 21:15 Dose: 300 mg Folic Acid (Folic Acid -) 1 mg PO DAILY [facility] Last Admin: 10/25/16 09:00 Dose: 1 mg Heparin Sodium (Porcine) (Heparin -) 5,000 unit SQ BID [facility] Last Admin: 10/25/16 21:16 Dose: 5,000 unit Hydromorphone HCl (Dilaudid Injection -) 0.5 mg IVPB Q4H PRN PRN Reason: PAIN Last Admin: 10/25/16 19:45 Dose: 0.5 mg Ranitidine HCl (Zantac -) 150 mg PO BID [facility] Last Admin: 10/25/16 21:15 Dose: 150 mg Sucralfate (Carafate -) 1 gm PO BID [facility] Last Admin: 10/25/16 21:51 Dose: 1 gm Venlafaxine HCl (Effexor Xr -) 37.5 mg PO DAILY [facility] Last Admin: 10/25/16 09:00 Dose: 37.5 mg - Objective Vital Signs: Vital Signs Temperature 98.8 F 10/25/16 15:00 Pulse Rate 68 10/25/16 15:00 Respiratory Rate 20 10/25/16 15:00 Blood Pressure 139/63 10/25/16 15:00 O2 Sat by Pulse Oximetry (%) 95 10/25/16 09:00 Neck: Yes: Supple Cardiovascular: Yes: WNL, Regular Rate and Rhythm Respiratory: Yes: WNL, Regular, CTA Bilaterally Gastrointestinal: Yes: WNL, Normal Bowel Sounds, Soft, Abdomen, Obese Labs: CBC, BMP 10/24/16 06:00 10/24/16 06:00 INR, PTT INR 1.03 (0.82-1.09) 10/24/16 06:00 Fibrinogen 254.0 mg/dL (238-498) 10/24/16 06:00 Problem List - Problems (1) Sickle cell crisis Assessment/Plan: S/P transfusion 2 units PRBC's Check retic count in am Follow H/H Heme consult Cont IVF Xray hip: osteoslerotic lesion Will check CT scan hip and ortho consult Code(s): D57.00 - HB-SS DISEASE WITH CRISIS, UNSPECIFIED (2) Chest pain Assessment/Plan: Due to sickle cell crisis ?costrochondritis Code(s): R07.9 - CHEST PAIN, UNSPECIFIED (3) Hypertension Assessment/Plan: Bp more stable Code(s): I10 - ESSENTIAL (PRIMARY) HYPERTENSION (4) Renal insufficiency, mild Code(s): N28.9 - DISORDER OF KIDNEY AND URETER, UNSPECIFIED
[2016-10-26 06:38] LABS: BASOPHIL 0.7 % (0-2.0); EOSINOPHIL 7.6 % (0-4.5); MCH 26.6 pg (25.7-33.7); MCHC 33.3 g/dl (32.0-36.0); MEAN CELL VOLUME 79.7 fl (80-96); MEAN PLT VOLUME 9.8 fl (7.5-11.1); NEUTROPHILS 48.2 % (42.8-82.8); PLATELET COUNT 182 K/MM3 (134-434); RDW 18.5 % (11.6-15.6); WHITE BLOOD COUNT 4.6 K/mm3 (4.0-10.0)
[2016-10-26 07:10] LABS: ALBUMIN 3.7 g/dl (3.4-5.0); CALCIUM 8.6 mg/dL (8.5-10.1); CREATININE 1.4 mg/dL (0.55-1.02)
[2016-10-26 07:11] LABS: TOT PROT 6.7 g/dl (6.4-8.2)
--- NOTE | 2016-10-26 08:37 | PN ---
Progress Note, Physician Chief Complaint: MV dz History of Present Illness: enedina ramirez appears comfortable - Current Medication List Current Medications: Active Medications Acetaminophen (Tylenol -) 650 mg PO Q4H PRN PRN Reason: FEVER OR PAIN Last Admin: 10/25/16 21:15 Dose: 650 mg Amlodipine Besylate (Norvasc -) 10 mg PO DAILY [facility] Last Admin: 10/25/16 09:00 Dose: 10 mg Aspirin (Asa -) 81 mg PO DAILY [facility] Last Admin: 10/25/16 09:00 Dose: 81 mg Carvedilol (Coreg -) 6.25 mg PO BID [facility] Last Admin: 10/25/16 21:15 Dose: 6.25 mg Docusate Sodium (Colace -) 300 mg PO HS [facility] Last Admin: 10/25/16 21:15 Dose: 300 mg Folic Acid (Folic Acid -) 1 mg PO DAILY [facility] Last Admin: 10/25/16 09:00 Dose: 1 mg Heparin Sodium (Porcine) (Heparin -) 5,000 unit SQ BID [facility] Last Admin: 10/25/16 21:16 Dose: 5,000 unit Hydromorphone HCl (Dilaudid Injection -) 0.5 mg IVPB Q4H PRN PRN Reason: PAIN Last Admin: 10/25/16 19:45 Dose: 0.5 mg Ranitidine HCl (Zantac -) 150 mg PO BID [facility] Last Admin: 10/25/16 21:15 Dose: 150 mg Sucralfate (Carafate -) 1 gm PO BID [facility] Last Admin: 10/25/16 21:51 Dose: 1 gm Venlafaxine HCl (Effexor Xr -) 37.5 mg PO DAILY [facility] Last Admin: 10/25/16 09:00 Dose: 37.5 mg - Objective Vital Signs: Vital Signs Temperature 99.2 F 10/26/16 06:00 Pulse Rate 67 10/26/16 06:00 Respiratory Rate 20 10/26/16 06:00 Blood Pressure 172/76 10/26/16 06:00 O2 Sat by Pulse Oximetry (%) 95 10/25/16 21:00 Constitutional: Yes: Well Nourished, No Distress, Calm Cardiovascular: Yes: Regular Rate and Rhythm, JVD (mild IJ dilation), S1, S2. No: Gallop, Murmur Respiratory: Yes: Regular, CTA Bilaterally. No: Accessory Muscle Use, Rales, Wheezes Extremities: No: Cold Edema: No Neurological: Yes: Alert, Oriented. No: Seizure Psychiatric: No: Agitated Labs: CBC, BMP 10/26/16 05:25 10/26/16 05:25 INR, PTT INR 1.03 (0.82-1.09) 10/24/16 06:00 Fibrinogen 254.0 mg/dL (238-498) 10/24/16 06:00 - ....Imaging EKG: Other (tele: NSR) Assessment/Plan echo 10/2016: mild conc lvh, mod lve, low nl lvef, mod lae, nl rv, sev mr, mod tr, mild ar, mild-mod pr, rvsp 50-60 a/p: 69 year old woman with a history of HTN, sickle cell disease, borderline cardiomyopathy, PAF vs PSVT presents with abdominal/chest pain/sob and presumed sickle cell crisis. Sickle Cell crisis/anemia -as per Med/Heme Chest pain - does not seem cardiac, improving. Chronic x 1 month and typical of prior sickle cell episodes. EKG without ischemic changes. trop with intermediate elevation with flat trend and nl ck not consistent with acs. Severe mitral regurgitation, Mild LV dysfunction: -reportedly morphologically normal MV with eccentric MR that appears severe -low-normal LVEF since 12/29 study, MR reportedly moderate then--appears that LV dysfunction predates hemodynamically signif MR burden -euvolemic, no signs of symptomatic chf/mr, no audible murmur -she has IIa indication for MVR in the presence of resting pulm artery pressure >50 (and ? of PAFib on prior admit)--needs to be discussed with pt/family once sickle cell crisis is better treated -however, given eccentric nature of the jet, it is difficult to accurately diagnose severity and needs repeat outpatient study (including pulmonary vein doppler) and possibly BALBIR--non-urgent and should be done as outpt with us after hosp d/c HTN - started on coreg and norvasc here - ? pain from sickle cell crisis contributing - bp remains poorly controlled--start RORO (lisinopril 20mg) given concomitant severe MR PAF vs PSVT - self limited on prior admit. - tele here showing brief runs of likely PAT - will increase coreg, monitor on tele - on prior admit couldn't r/o PAF. Family declined empiric AC and likely not a good candidate regardless given sickle cell anemia with hgb in 6s here. Did not f/u with cards for event monitoring. CKD vs nancy - stable, unclear baseline - ok for fluids with close monitoring for signs of chf, if needed D/C TELEMETRY
[2016-10-26] MEDS: HYDROmorphone HCL CARPU-JECT 1 MG/1 ML DISP.SYRIN IVPB PRN (08:55)
[2016-10-26] MEDS: ASPIRIN 81 MG CHEWABLE TABLETS PO SCH (08:59)
[2016-10-26] MEDS: SUCRALFATE 1 GM TABLET (FP) PO SCH ×2 (08:59→22:15)
[2016-10-26] MEDS: FOLIC ACID 1 MG TABLET (FP) PO SCH (08:59)
[2016-10-26] MEDS: HEPARIN NA (PORCINE) 5,000 UNITS/ML 1ML VIAL SQ SCH ×2 (08:59→22:14)
[2016-10-26] MEDS: amLODIPine BESYLATE 10 MG TABLET (FP) PO SCH (08:59)
[2016-10-26] MEDS: VENLAFAXINE HCL 37.5 MG E.R. CAPSULE (FP) PO SCH (08:59)
[2016-10-26] MEDS: RANITIDINE HCL 150 MG TABLET (FP) PO SCH ×2 (08:59→22:15)
[2016-10-26] MEDS: CARVEDILOL 6.25 MG TABLET (FP) PO SCH ×2 (08:59→22:15)
[2016-10-26] MEDS: LISINOPRIL 20 MG TABLET (FP) PO SCH (09:42)
[2016-10-26] MEDS: ONDANSETRON 4 MG/2 ML VIAL IVPB PRN (15:38)
[2016-10-26] MEDS: ACETAMINOPHEN 325 MG TABLET (FP) PO PRN (18:11)
[2016-10-26] MEDS: MECLIZINE HCL 25 MG TABLET (FP) PO PRN (20:38)
--- NOTE | 2016-10-26 20:43 | PN ---
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 chest/back continue dilaudid prn/ fluids/folic acid zofran prn monitor
[2016-10-26] MEDS: DOCUSATE SODIUM 100 MG CAPSULE (FP) PO SCH (22:15)
--- NOTE | 2016-10-26 23:36 | PN ---
Progress Note, Physician History of Present Illness: Pt w/ nausea today - Current Medication List Current Medications: Active Medications Acetaminophen (Tylenol -) 650 mg PO Q4H PRN PRN Reason: FEVER OR PAIN Last Admin: 10/26/16 18:11 Dose: 650 mg Amlodipine Besylate (Norvasc -) 10 mg PO DAILY [facility] Last Admin: 10/26/16 08:59 Dose: 10 mg Aspirin (Asa -) 81 mg PO DAILY [facility] Last Admin: 10/26/16 08:59 Dose: 81 mg Carvedilol (Coreg -) 6.25 mg PO BID [facility] Last Admin: 10/26/16 22:15 Dose: 6.25 mg Docusate Sodium (Colace -) 300 mg PO HS [facility] Last Admin: 10/26/16 22:15 Dose: 300 mg Folic Acid (Folic Acid -) 1 mg PO DAILY [facility] Last Admin: 10/26/16 08:59 Dose: 1 mg Heparin Sodium (Porcine) (Heparin -) 5,000 unit SQ BID [facility] Last Admin: 10/26/16 22:14 Dose: 5,000 unit Hydromorphone HCl (Dilaudid Injection -) 0.5 mg IVPB Q6H PRN PRN Reason: PAIN Lisinopril (Prinivil) 20 mg PO DAILY [facility] Last Admin: 10/26/16 09:42 Dose: 20 mg Meclizine HCl (Antivert -) 25 mg PO Q8H PRN Last Admin: 10/26/16 20:38 Dose: 25 mg Ondansetron HCl (Zofran Injection) 4 mg IVPB Q8H PRN PRN Reason: NAUSEA AND/OR VOMITING Last Admin: 10/26/16 15:38 Dose: 4 mg Ranitidine HCl (Zantac -) 150 mg PO BID [facility] Last Admin: 10/26/16 22:15 Dose: 150 mg Sucralfate (Carafate -) 1 gm PO BID [facility] Last Admin: 10/26/16 22:15 Dose: 1 gm Venlafaxine HCl (Effexor Xr -) 37.5 mg PO DAILY [facility] Last Admin: 10/26/16 08:59 Dose: 37.5 mg - Objective Vital Signs: Vital Signs Temperature 98.3 F 10/26/16 16:36 Pulse Rate 65 10/26/16 16:36 Respiratory Rate 20 10/26/16 16:36 Blood Pressure 129/63 10/26/16 16:36 O2 Sat by Pulse Oximetry (%) 94 L 10/26/16 09:00 Constitutional: Yes: Well Nourished Neck: Yes: Supple Cardiovascular: Yes: WNL, Regular Rate and Rhythm Respiratory: Yes: WNL, Regular, CTA Bilaterally Gastrointestinal: Yes: WNL, Normal Bowel Sounds, Soft Extremities: Yes: WNL Edema: No Labs: CBC, BMP 10/26/16 05:25 10/26/16 05:25 INR, PTT INR 1.03 (0.82-1.09) 10/24/16 06:00 Fibrinogen 254.0 mg/dL (238-498) 10/24/16 06:00 Problem List - Problems (1) Sickle cell crisis Assessment/Plan: S/P transfusion 2 units PRBC's Follow H/H Cont IVF Code(s): D57.00 - HB-SS DISEASE WITH CRISIS, UNSPECIFIED (2) Chest pain Assessment/Plan: Due to sickle cell crisis ?costrochondritis Cardio consult noted Agree will speak to family about outpt testing/management severe MR Code(s): R07.9 - CHEST PAIN, UNSPECIFIED (3) Hypertension Assessment/Plan: BP fluctuating Meds being adjusted Code(s): I10 - ESSENTIAL (PRIMARY) HYPERTENSION (4) Renal insufficiency, mild Code(s): N28.9 - DISORDER OF KIDNEY AND URETER, UNSPECIFIED
[2016-10-27 07:47] LABS: BASOPHIL 0.5 % (0-2.0); EOSINOPHIL 5.5 % (0-4.5); MCH 26.5 pg (25.7-33.7); MEAN CELL VOLUME 80.2 fl (80-96); MEAN PLT VOLUME 9.4 fl (7.5-11.1); NEUTROPHILS 38.7 % (42.8-82.8); PLATELET COUNT 178 K/MM3 (134-434); RDW 18.8 % (11.6-15.6); WHITE BLOOD COUNT 4.6 K/mm3 (4.0-10.0)
[2016-10-27 08:05] LABS: ALBUMIN 3.8 g/dl (3.4-5.0); CALCIUM 9.2 mg/dL (8.5-10.1); MAGNESIUM 2.3 mg/dL (1.8-2.4)
[2016-10-27 08:08] LABS: BILIRUBIN,TOTAL 0.9 mg/dL (0.2-1.0); CREATININE 1.3 mg/dL (0.55-1.02); PHOSPHOROUS 4.3 mg/dL (2.5-4.9); TOT PROT 6.9 g/dl (6.4-8.2)
[2016-10-27] MEDS ORDERED: MAGNESIUM HYDROX 2400MG/30ML ORAL SUSPENSION 30 ML CUP PO ONE (09:08)
[2016-10-27] MEDS ORDERED: PT OWN MED DRAWER 7, Y5N ONE ×2 (09:32→20:54)
--- NOTE | 2016-10-27 09:33 | PN ---
Physical Exam: SUBJECTIVE: Patient seen and examined. DynaPump sash maker utilized, sash maker # [id number]. She reports multiple complaints including continued pain to the left side of her chest which radiates to her back as well as abdominal pain with nauseaShe also reports dizziness and describes the sensation as the "world is spinning".She reports continued pain in her left hip. She does not seem to be utilizing the pain medication and does not report pain to the nurses. She reports that her last BM was 3 days ago and she is "constipated" OBJECTIVE: Vital Signs - 24 hr 3 10/26/16 10/26/16 10/26/16 14:34 16:36 21:00 Temperature 98.3 F 98.3 F 97.9 F Pulse Rate 67 65 69 Respiratory 20 20 18 Rate Blood Pressure 139/60 129/63 156/84 O2 Sat by Pulse 95 Oximetry (%) 3 10/27/16 06:00 Temperature 98.5 F Pulse Rate 68 Respiratory 18 Rate Blood Pressure 153/72 O2 Sat by Pulse Oximetry (%) GENERAL: The patient is awake, alert, and fully oriented, in no acute distress. HEAD: Normal with no signs of trauma. EYES: PERRL, extraocular movements intact, sclera anicteric, conjunctiva clear. No ptosis. ENT: Ears normal, nares patent, oropharynx clear without exudates, moist mucous membranes. NECK: Trachea midline, full range of motion, supple. LUNGS: Breath sounds equal, clear to auscultation bilaterally, no wheezes, no crackles, no accessory muscle use. HEART: Regular rate and rhythm, S1, S2 without murmur, rub or gallop. pt reports pain on palpation of left chest below breast ABDOMEN: Soft, nontender, nondistended, normoactive bowel sounds, no guarding, no rebound, no hepatosplenomegaly, no masses. EXTREMITIES: 2+ pulses, warm, well-perfused, no edema. NEUROLOGICAL: Cranial nerves II through XII grossly intact. Normal speech, gait not observed. PSYCH: Normal mood, normal affect. SKIN: Warm, dry, normal turgor, no rashes or lesions noted Laboratory Results - last 24 hr 3 10/27/16 10/27/16 06:50 06:50 WBC 4.6 RBC 3.63 Hgb 9.6 L Hct 29.1 L MCV 80.2 MCHC 33.0 RDW 18.8 H Plt Count 178 MPV 9.4 Neutrophils % 38.7 L Lymphocytes % 46.5 H D Monocytes % 8.8 Eosinophils % 5.5 H Basophils % 0.5 Sodium 140 Potassium 5.1 Chloride 105 Carbon Dioxide 27 Anion Gap 8 BUN 26 H Creatinine 1.3 H Creat Clearance w eGFR 40.26 Random Glucose 90 Calcium 9.2 Phosphorus 4.3 Magnesium 2.3 Total Bilirubin 0.9 AST 45 H D ALT 75 Alkaline Phosphatase 149 H Total Protein 6.9 Albumin 3.8 Active Medications 3 Generic Name Dose Route Start Last Admin Trade Name Freq PRN Reason Stop Dose Admin Acetaminophen 650 mg 10/22/16 18:34 10/26/16 18:11 Tylenol - PO 650 mg Q4H PRN Administration FEVER OR PAIN Amlodipine Besylate 10 mg 10/25/16 08:02 10/26/16 08:59 Norvasc - PO 10 mg DAILY [facility] Administration Aspirin 81 mg 10/23/16 10:00 10/26/16 08:59 Asa - PO 81 mg DAILY [facility] Administration Carvedilol 6.25 mg 10/25/16 08:02 10/26/16 22:15 Coreg - PO 6.25 mg BID [facility] Administration Docusate Sodium 300 mg 10/25/16 22:00 10/26/16 22:15 Colace - PO 300 mg HS [facility] Administration Folic Acid 1 mg 10/23/16 11:15 10/26/16 08:59 Folic Acid - PO 1 mg DAILY [facility] Administration Heparin Sodium (Porcine) 5,000 unit 10/22/16 22:00 10/26/16 22:14 Heparin - SQ 5,000 unit BID [facility] Administration Hydromorphone HCl 0.5 mg 10/26/16 19:59 Dilaudid Injection - IVPB Q6H PRN PAIN Sodium Chloride 1,000 mls @ 75 mls/hr 10/27/16 09:15 Normal Saline - IV ASDIR [facility] Lisinopril 20 mg 10/26/16 10:00 10/26/16 09:42 Prinivil PO 20 mg DAILY [facility] Administration Meclizine HCl 25 mg 10/26/16 20:24 10/26/16 20:38 Antivert - PO 25 mg Q8H PRN Administration Ondansetron HCl 4 mg 10/26/16 15:29 10/26/16 15:38 Zofran Injection IVPB 4 mg Q8H PRN Administration NAUSEA AND/OR VOMITING Polyethylene Glycol 17 gm 10/27/16 10:00 Miralax (For Daily Use) - PO DAILY [facility] Ranitidine HCl 150 mg 10/23/16 22:00 10/26/16 22:15 Zantac - PO 150 mg BID [facility] Administration Sucralfate 1 gm 10/23/16 22:00 10/26/16 22:15 Carafate - PO 1 gm BID [facility] Administration Venlafaxine HCl 37.5 mg 10/22/16 18:45 10/26/16 08:59 Effexor Xr - PO 37.5 mg DAILY [facility] Administration ASSESSMENT/PLAN: 71yF with pMH HTN, pAfib, PSVT, cardiomyopathy, sickle beta thalassemia, depression, GERD who presented with abdominal pain. She was found to have a low H/H and was transfused. Her troponins were also borderline elevated. Abdominal pain with nausea - constipation likely contributing, MOM 30cc now, start miralax daily - cont ranitidine and carafate - LFTs were trending up, now down again, cont to trend, tylenol DC - BUN up today, start IVF: NS @75cc/hr x 1 liter - zofran PRN for nausea Chest pain - troponins trended and remained stable - being followed by cardiology, doubt pain is cardiac - severe MR on echo but no murmur auscultated, will need outpatient f/u - cont cardiology f/u sickle beta thalassemia - cont dilaudid PRN, encouraged to ask for pain medication - hematology consult appreciated vertigo - cont meclizine prn - consider neuro consult hip pain - CT pelvis ordered - ortho consult ordered HTN - BP improved with coreg, lisinopril and norvasc. monitor renal function on lisinopril DVT PPX - cont heparin 5000u BID FEN - NS @ 75cc/hr x 1 liter - repeat labs in am - low sodium diet as tolerated Dispo: Pt continues to require inpatient care. Visit type - Emergency Visit Emergency Visit: Yes ED Registration Date: 10/22/16 Care time: The patient presented to the Emergency Department on the above date and was hospitalized for further evaluation of their emergent condition. - New Patient This patient is new to me today: Yes Date on this admission: 10/27/16 - Critical Care Critical Care patient: No - Discharge Referral Referred to [facility] No
[2016-10-27] MEDS: HYDROmorphone HCL CARPU-JECT 1 MG/1 ML DISP.SYRIN IVPB PRN ×2 (09:59→21:05)
[2016-10-27] MEDS: ONDANSETRON 4 MG/2 ML VIAL IVPB PRN (10:06)
[2016-10-27] MEDS: ASPIRIN 81 MG CHEWABLE TABLETS PO SCH (10:09)
[2016-10-27] MEDS: SODIUM CHLORIDE 1,000 ML IV SCH (10:09)
[2016-10-27] MEDS: SUCRALFATE 1 GM TABLET (FP) PO SCH ×2 (10:10→21:05)
[2016-10-27] MEDS: POLYETHYLENE GLYCOL 3350 119 GM BTL PO SCH (10:11)
[2016-10-27] MEDS: FOLIC ACID 1 MG TABLET (FP) PO SCH (10:11)
[2016-10-27] MEDS: CARVEDILOL 6.25 MG TABLET (FP) PO SCH ×2 (10:11→21:05)
[2016-10-27] MEDS: HEPARIN NA (PORCINE) 5,000 UNITS/ML 1ML VIAL SQ SCH ×2 (10:11→21:05)
[2016-10-27] MEDS: VENLAFAXINE HCL 37.5 MG E.R. CAPSULE (FP) PO SCH (10:11)
[2016-10-27] MEDS: amLODIPine BESYLATE 10 MG TABLET (FP) PO SCH (10:12)
[2016-10-27] MEDS: MECLIZINE HCL 25 MG TABLET (FP) PO PRN (10:12)
[2016-10-27] MEDS: LISINOPRIL 20 MG TABLET (FP) PO SCH (10:12)
[2016-10-27] MEDS: RANITIDINE HCL 150 MG TABLET (FP) PO SCH ×2 (10:12→21:05)
[2016-10-27] MEDS: DOCUSATE SODIUM 100 MG CAPSULE (FP) PO SCH (21:04)
[2016-10-28] MEDS ORDERED: PT OWN MED DRAWER 7, Y5N ONE (09:37)
--- NOTE | 2016-10-28 09:40 | PN ---
Progress Note (short form) - Note Progress Note: s: daughter translated; no cp sob palps; main complaint is right hip pain and left abd pain o: Vital Signs Period Temp Pulse Resp BP Sys/Truong Pulse Ox Last 24 Hr 97.5 F-98.6 F 60-75 14-18 113-147/53-68 93 nad no jvd, neck supple CTAB, nl effort RRR nl s1, s2 no mrg no e/c/c aaox3 no jaundice, diaphoresis Current Medications Generic Name Dose Route Start Last Admin Trade Name Freq PRN Reason Stop Dose Admin Amlodipine Besylate 10 mg 10/25/16 08:02 10/27/16 10:12 Norvasc - PO 10 mg DAILY [facility] Administration Aspirin 81 mg 10/23/16 10:00 10/27/16 10:09 Asa - PO 81 mg DAILY [facility] Administration Carvedilol 6.25 mg 10/25/16 08:02 10/27/16 21:05 Coreg - PO 6.25 mg BID [facility] Administration Docusate Sodium 300 mg 10/25/16 22:00 10/27/16 21:04 Colace - PO 300 mg HS [facility] Administration Folic Acid 1 mg 10/23/16 11:15 10/27/16 10:11 Folic Acid - PO 1 mg DAILY [facility] Administration Heparin Sodium (Porcine) 5,000 unit 10/22/16 22:00 10/27/16 21:05 Heparin - SQ 5,000 unit BID [facility] Administration Hydromorphone HCl 0.5 mg 10/26/16 19:59 10/27/16 21:05 Dilaudid Injection - IVPB 0.5 mg Q6H PRN Administration PAIN Sodium Chloride 1,000 mls @ 75 mls/hr 10/27/16 09:15 10/27/16 10:09 Normal Saline - IV 75 mls/hr ASDIR [facility] Administration Lisinopril 20 mg 10/26/16 10:00 10/27/16 10:12 Prinivil PO 20 mg DAILY [facility] Administration Meclizine HCl 25 mg 10/26/16 20:24 10/27/16 10:12 Antivert - PO 25 mg Q8H PRN Administration Ondansetron HCl 4 mg 10/26/16 15:29 10/27/16 10:06 Zofran Injection IVPB 4 mg Q8H PRN Administration NAUSEA AND/OR VOMITING Polyethylene Glycol 17 gm 10/27/16 10:00 10/27/16 10:11 Miralax (For Daily Use) - PO 17 gm DAILY [facility] Administration Ranitidine HCl 150 mg 10/23/16 22:00 10/27/16 21:05 Zantac - PO 150 mg BID [facility] Administration Sucralfate 1 gm 10/23/16 22:00 10/27/16 21:05 Carafate - PO 1 gm BID [facility] Administration Venlafaxine HCl 37.5 mg 10/22/16 18:45 10/27/16 10:11 Effexor Xr - PO 37.5 mg DAILY [facility] Administration CBC, BMP 10/27/16 06:50 10/27/16 06:50 cxr: clear ekg: nsr, lvh, no ischemic changes prior echo: mild lv dilation, low normal lv systolic fn. nl rv. mild lae. mod mr, 1+ ar/tr echo 10/2016: mild conc lvh, mod lve, low nl lvef, mod lae, nl rv, sev mr, mod tr, mild ar, mild-mod pr, rvsp 50-60 a/p: 69 year old woman with a history of HTN, sickle cell disease, borderline cardiomyopathy, PAF vs PSVT presents with abdominal/chest pain/sob and presumed sickle cell crisis. Sickle Cell crisis/anemia -as per Med/Heme Chest pain - does not seem cardiac, improving. Chronic x 1 month and typical of prior sickle cell episodes. EKG without ischemic changes. trop with intermediate elevation with flat trend and nl ck not consistent with acs. Severe mitral regurgitation, Mild LV dysfunction: -reportedly morphologically normal MV with eccentric MR that appears severe -low-normal LVEF since 12/29 study, MR reportedly moderate then--appears that LV dysfunction predates hemodynamically signif MR burden -euvolemic, no signs of symptomatic chf/mr, no audible murmur -she has IIa indication for MVR in the presence of resting pulm artery pressure >50 (and ? of PAFib on prior admit)--needs to be discussed with pt/family once sickle cell crisis is better treated -however, given eccentric nature of the jet, it is difficult to accurately diagnose severity and needs repeat outpatient study (including pulmonary vein doppler) and possibly BALBIR--non-urgent and should be done as outpt with us after hosp d/c HTN - started on coreg, lisinopril, and norvasc here - ? pain from sickle cell crisis contributing - bp better controlled now PAF vs PSVT - self limited on prior admit. - tele here showing brief runs of likely PAT for which coreg increased. no further need for tele - on prior admit couldn't r/o PAF. Family declined empiric AC and likely not a good candidate regardless given sickle cell anemia with hgb in 6s here. Did not f/u with cards for event monitoring. CKD vs nancy - stable, unclear baseline - ok for fluids with close monitoring for signs of chf, if needed cardiac manzano remains stable
[2016-10-28] MEDS: ONDANSETRON 4 MG/2 ML VIAL IVPB PRN (09:52)
[2016-10-28] MEDS: HYDROmorphone HCL CARPU-JECT 1 MG/1 ML DISP.SYRIN IVPB PRN (09:55)
[2016-10-28] MEDS: SODIUM CHLORIDE 1,000 ML IV SCH (10:03)
[2016-10-28] MEDS: VENLAFAXINE HCL 37.5 MG E.R. CAPSULE (FP) PO SCH (10:07)
[2016-10-28] MEDS: CARVEDILOL 6.25 MG TABLET (FP) PO SCH ×2 (10:07→21:33)
[2016-10-28] MEDS: ASPIRIN 81 MG CHEWABLE TABLETS PO SCH (10:07)
[2016-10-28] MEDS: SUCRALFATE 1 GM TABLET (FP) PO SCH ×2 (10:07→21:32)
[2016-10-28] MEDS: FOLIC ACID 1 MG TABLET (FP) PO SCH (10:07)
[2016-10-28] MEDS: POLYETHYLENE GLYCOL 3350 119 GM BTL PO SCH (10:08)
[2016-10-28] MEDS: amLODIPine BESYLATE 10 MG TABLET (FP) PO SCH (10:08)
[2016-10-28] MEDS: RANITIDINE HCL 150 MG TABLET (FP) PO SCH ×2 (10:08→21:33)
[2016-10-28] MEDS: LISINOPRIL 20 MG TABLET (FP) PO SCH (10:08)
[2016-10-28] MEDS: HEPARIN NA (PORCINE) 5,000 UNITS/ML 1ML VIAL SQ SCH ×2 (10:11→21:32)
[2016-10-28] MEDS: MECLIZINE HCL 25 MG TABLET (FP) PO PRN (12:51)
[2016-10-28] MEDS ORDERED: OXYCODONE/APAP 5/325MG COMBO TABLET PO PRN (17:03)
[2016-10-28] MEDS ORDERED: ACETAMINOPHEN 325 MG TABLET (FP) PO PRN (17:11)
[2016-10-28] MEDS ORDERED: oxyCODONE HCL 5 MG TABLET PO PRN (17:11)
[2016-10-28 19:05] LABS: ALBUMIN 4.1 g/dl (3.4-5.0); BILIRUBIN,TOTAL 0.7 mg/dL (0.2-1.0); CREATININE 1.1 mg/dL (0.55-1.02); TOT PROT 7.3 g/dl (6.4-8.2)
[2016-10-28 19:15] LABS: BASOPHIL 1.4 % (0-2.0); EOSINOPHIL 4.1 % (0-4.5); MCH 26.3 pg (25.7-33.7); MCHC 32.5 g/dl (32.0-36.0); MEAN CELL VOLUME 80.8 fl (80-96); MEAN PLT VOLUME 10.3 fl (7.5-11.1); NEUTROPHILS 56.8 % (42.8-82.8); PLATELET COUNT 182 K/MM3 (134-434); RDW 19.2 % (11.6-15.6); WHITE BLOOD COUNT 4.9 K/mm3 (4.0-10.0)
--- NOTE | 2016-10-28 20:40 | PN ---
Progress Note (short form) - Note Progress Note: PAtient seen and examined feels better pain in the back/lt.chest Last Vital Signs Temp Pulse Resp BP Pulse Ox 98.9 F 73 18 166/72 95 10/28/16 18:00 10/28/16 18:00 10/28/16 20:00 10/28/16 18:00 10/28/16 20:00 Cor: RSR, No murmurs, No gallops Lungs: Clear to P&A Abd: Soft, Normal bowel sounds, No organomegaly Ext:No significant edema Abnormal Lab Results 10/28/16 10/28/16 17:15 17:15 RBC 3.57 L Hgb 9.4 L Hct 28.8 L RDW 19.2 H Potassium 5.9 H Anion Gap 7 L BUN 34 H D Creatinine 1.1 H Random Glucose 109 H D AST 46 H Alkaline Phosphatase 161 H Current Medications Acetaminophen (Tylenol -) 325 mg PO Q6H PRN PRN Reason: PAIN LEVEL 6-10 Last Admin: 10/28/16 17:33 Dose: 325 mg Acetaminophen (Tylenol -) 650 mg PO Q4H PRN PRN Reason: PAIN Stop: 10/31/16 20:53 Last Admin: 10/28/16 21:35 Dose: 650 mg Amlodipine Besylate (Norvasc -) 10 mg PO DAILY [facility] Last Admin: 10/28/16 10:08 Dose: 10 mg Aspirin (Asa -) 81 mg PO DAILY [facility] Last Admin: 10/28/16 10:07 Dose: 81 mg Carvedilol (Coreg -) 6.25 mg PO BID [facility] Last Admin: 10/28/16 21:33 Dose: 6.25 mg Docusate Sodium (Colace -) 300 mg PO HS [facility] Last Admin: 10/28/16 21:33 Dose: 300 mg Folic Acid (Folic Acid -) 1 mg PO DAILY [facility] Last Admin: 10/28/16 10:07 Dose: 1 mg Heparin Sodium (Porcine) (Heparin -) 5,000 unit SQ BID [facility] Last Admin: 10/28/16 21:32 Dose: 5,000 unit Lisinopril (Prinivil) 20 mg PO DAILY [facility] Last Admin: 10/28/16 10:08 Dose: 20 mg Meclizine HCl (Antivert -) 25 mg PO Q8H PRN Last Admin: 10/28/16 12:51 Dose: 25 mg Ondansetron HCl (Zofran Injection) 4 mg IVPB Q8H PRN PRN Reason: NAUSEA AND/OR VOMITING Last Admin: 10/28/16 09:52 Dose: 4 mg Oxycodone HCl (Roxicodone -) 5 mg PO Q6H PRN PRN Reason: PAIN 6-10 Last Admin: 10/28/16 17:32 Dose: 5 mg Oxycodone HCl (Roxicodone -) 10 mg PO Q4H PRN PRN Reason: PAIN Last Admin: 10/28/16 21:33 Dose: 10 mg Polyethylene Glycol (Miralax (For Daily Use) -) 17 gm PO DAILY [facility] Last Admin: 10/28/16 10:08 Dose: 17 gm Ranitidine HCl (Zantac -) 150 mg PO BID [facility] Last Admin: 10/28/16 21:33 Dose: 150 mg Sucralfate (Carafate -) 1 gm PO BID [facility] Last Admin: 10/28/16 21:32 Dose: 1 gm Venlafaxine HCl (Effexor Xr -) 37.5 mg PO DAILY [facility] Last Admin: 10/28/16 10:07 Dose: 37.5 mg a/p 71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 chest/back on oxycodone prn zofran prn check LDh/retics/CBC
[2016-10-28] MEDS: oxyCODONE HCL 5 MG TABLET PO PRN (21:33)
[2016-10-28] MEDS: ACETAMINOPHEN 325 MG TABLET (FP) PO PRN (21:35)
[2016-10-28] MEDS ORDERED: DOCUSATE SODIUM 100 MG CAPSULE (FP) PO SCH (22:00)
--- NOTE | 2016-10-28 22:09 | PN ---
Progress Note (short form) - Note Progress Note: Orthopedic PA consult Subjective: 71 y/o female with a PMH significant for HTN, parosymal afib/PSVT, cardiomyopathy, sickle cell disease, depression and GERD admitted for sickle cell crisis. History limited secondary to a language barrier. The patient reports having had left hip pain a few days ago. She denies any current pain, trauma/falls/injury. No paresthesias. Objective: NAD. VSS. Answering questions appropriately. Normal gait. Normal body habitus. L hip exam: No swelling. No deformity. Non-tender bilaterally. Full ROM without pain of the bilateral hip, knee, ankle and foot. Strength 5/5 bilaterally. EHL/FHL intact. DP pulses 2+ and equal. R hip x-ray and CT pelvis x-ray images and report reviewed demonstrating significant right hip degenerative changes and moderate left hip degenerative changes. A/P: 71 y/o female admitted for sickle cell crisis with left hip pain -Patient's pain has resolved. Hip is non-tender and no pain with ROM bilaterally. -Start PT -If patient's pain returns, can consider further hip imaging. Do not suspect avascular necrosis at this time. -The case was discussed with Dr. Guadarrama who agreed with the above clinical treatment and plan.
--- NOTE | 2016-10-28 22:23 | PN ---
Progress Note, Physician History of Present Illness: Conflicting accounts of pain from pt. Spoke to length w/ pt's daughter who said their mother is still in about 6/10 pain in lt anterior chest wall/back pain and lt hip pain. I told daughter that pt is found many points of the day resting and w/ no apparent pain and not asking for pain meds. However as per daughter pt has been in pain all day. Pt calls daughter when she is in pain - Current Medication List Current Medications: Active Medications Acetaminophen (Tylenol -) 325 mg PO Q6H PRN PRN Reason: PAIN LEVEL 6-10 Last Admin: 10/28/16 17:33 Dose: 325 mg Acetaminophen (Tylenol -) 650 mg PO Q4H PRN PRN Reason: PAIN Stop: 10/31/16 20:53 Last Admin: 10/28/16 21:35 Dose: 650 mg Amlodipine Besylate (Norvasc -) 10 mg PO DAILY [facility] Last Admin: 10/28/16 10:08 Dose: 10 mg Aspirin (Asa -) 81 mg PO DAILY [facility] Last Admin: 10/28/16 10:07 Dose: 81 mg Carvedilol (Coreg -) 6.25 mg PO BID [facility] Last Admin: 10/28/16 21:33 Dose: 6.25 mg Docusate Sodium (Colace -) 300 mg PO HS [facility] Last Admin: 10/28/16 21:33 Dose: 300 mg Folic Acid (Folic Acid -) 1 mg PO DAILY [facility] Last Admin: 10/28/16 10:07 Dose: 1 mg Heparin Sodium (Porcine) (Heparin -) 5,000 unit SQ BID [facility] Last Admin: 10/28/16 21:32 Dose: 5,000 unit Lisinopril (Prinivil) 20 mg PO DAILY [facility] Last Admin: 10/28/16 10:08 Dose: 20 mg Meclizine HCl (Antivert -) 25 mg PO Q8H PRN Last Admin: 10/28/16 12:51 Dose: 25 mg Ondansetron HCl (Zofran Injection) 4 mg IVPB Q8H PRN PRN Reason: NAUSEA AND/OR VOMITING Last Admin: 10/28/16 09:52 Dose: 4 mg Oxycodone HCl (Roxicodone -) 5 mg PO Q6H PRN PRN Reason: PAIN 6-10 Last Admin: 10/28/16 17:32 Dose: 5 mg Oxycodone HCl (Roxicodone -) 10 mg PO Q4H PRN PRN Reason: PAIN Last Admin: 10/28/16 21:33 Dose: 10 mg Polyethylene Glycol (Miralax (For Daily Use) -) 17 gm PO DAILY [facility] Last Admin: 10/28/16 10:08 Dose: 17 gm Ranitidine HCl (Zantac -) 150 mg PO BID [facility] Last Admin: 10/28/16 21:33 Dose: 150 mg Sucralfate (Carafate -) 1 gm PO BID [facility] Last Admin: 10/28/16 21:32 Dose: 1 gm Venlafaxine HCl (Effexor Xr -) 37.5 mg PO DAILY [facility] Last Admin: 10/28/16 10:07 Dose: 37.5 mg - Objective Vital Signs: Vital Signs Temperature 98.9 F 10/28/16 18:00 Pulse Rate 73 10/28/16 18:00 Respiratory Rate 18 10/28/16 20:00 Blood Pressure 166/72 10/28/16 18:00 O2 Sat by Pulse Oximetry (%) 95 10/28/16 20:00 Neck: Yes: Supple Cardiovascular: Yes: WNL, Regular Rate and Rhythm, Other ((+) tenderness palpation on anterior chest wall) Respiratory: Yes: WNL, Regular, CTA Bilaterally Gastrointestinal: Yes: WNL, Normal Bowel Sounds, Soft Labs: CBC, BMP 10/28/16 17:15 INR, PTT INR 1.03 (0.82-1.09) 10/24/16 06:00 Fibrinogen 254.0 mg/dL (238-498) 10/24/16 06:00 Problem List - Problems (1) Sickle cell crisis Assessment/Plan: S/P transfusion 2 units PRBC's Follow H/H Spoke to pt through daughters about need to qualify pain. I explained to pt's daughter and pt that we will change to oral pain meds prn and if pt tolerates than dc planning for am. I told pt that she needs to call nurse when she is in pain or if she calls daughter I explained to daughter that she needs to call nursing station to document Retic count did decrease BUN/Creatinine improved after IV hydration However will dc IVF now and repeat labs in am Code(s): D57.00 - HB-SS DISEASE WITH CRISIS, UNSPECIFIED (2) Chest pain Code(s): R07.9 - CHEST PAIN, UNSPECIFIED (3) Hypertension Assessment/Plan: BP fluctuating ?Due to pain Code(s): I10 - ESSENTIAL (PRIMARY) HYPERTENSION (4) Renal insufficiency, mild Assessment/Plan: Improved after IV hydration Code(s): N28.9 - DISORDER OF KIDNEY AND URETER, UNSPECIFIED Assessment/Plan 1. Abdominal pain ?LUQ abdominal pain w/ tenderness ?Due to GERD vs muscular skeletal Cont zantac/carafate
[2016-10-29] MEDS: ONDANSETRON 4 MG/2 ML VIAL IVPB PRN (07:03)
[2016-10-29 07:31] LABS: MCH 26.3 pg (25.7-33.7); MCHC 32.7 g/dl (32.0-36.0); MEAN CELL VOLUME 80.5 fl (80-96); MEAN PLT VOLUME 9.5 fl (7.5-11.1); PLATELET COUNT 198 K/MM3 (134-434); WHITE BLOOD COUNT 4.9 K/mm3 (4.0-10.0)
[2016-10-29 08:14] LABS: ALBUMIN 4.2 g/dl (3.4-5.0); CALCIUM 9.4 mg/dL (8.5-10.1)
[2016-10-29 08:19] LABS: BILIRUBIN,TOTAL 0.9 mg/dL (0.2-1.0); CREATININE 1.5 mg/dL (0.55-1.02); TOT PROT 7.5 g/dl (6.4-8.2)
[2016-10-29] MEDS ORDERED: PT OWN MED DRAWER 7, Y5N ONE ×2 (08:54→19:30)
[2016-10-29 09:19] LABS: POLYCHROMASIA 1+; TARGET CELLS 4+; TEAR DROP CELLS RARE
[2016-10-29] MEDS: FOLIC ACID 1 MG TABLET (FP) PO SCH (09:23)
[2016-10-29] MEDS: SUCRALFATE 1 GM TABLET (FP) PO SCH (09:23)
[2016-10-29] MEDS: MECLIZINE HCL 25 MG TABLET (FP) PO PRN (09:24)
[2016-10-29] MEDS: RANITIDINE HCL 150 MG TABLET (FP) PO SCH (09:24)
[2016-10-29] MEDS: CARVEDILOL 6.25 MG TABLET (FP) PO SCH (09:24)
[2016-10-29] MEDS: HEPARIN NA (PORCINE) 5,000 UNITS/ML 1ML VIAL SQ SCH (09:24)
[2016-10-29] MEDS: amLODIPine BESYLATE 10 MG TABLET (FP) PO SCH (09:24)
[2016-10-29] MEDS: ASPIRIN 81 MG CHEWABLE TABLETS PO SCH (09:24)
[2016-10-29] MEDS: VENLAFAXINE HCL 37.5 MG E.R. CAPSULE (FP) PO SCH (09:27)
[2016-10-29] MEDS: POLYETHYLENE GLYCOL 3350 119 GM BTL PO SCH (09:30)
[2016-10-29] MEDS ORDERED: hydrALAZINE HCL 25 MG TABLET (FP) PO SCH (10:00)
--- NOTE | 2016-10-29 10:02 | PN ---
Progress Note (short form) - Note Progress Note: s: family translated; no cp sob palps; main complaint is right hip pain and left abd pain still o: Vital Signs Period Temp Pulse Resp BP Sys/Truong Pulse Ox Last 24 Hr 98.1 F-99.0 F 67-73 16-20 124-166/54-72 95 nad no jvd, neck supple CTAB, nl effort RRR nl s1, s2 no mrg no e/c/c aaox3 no jaundice, diaphoresis Current Medications Generic Name Dose Route Start Last Admin Trade Name Freq PRN Reason Stop Dose Admin Acetaminophen 650 mg 10/28/16 20:54 10/28/16 21:35 Tylenol - PO 10/31/16 20:53 650 mg Q4H PRN Administration PAIN Amlodipine Besylate 10 mg 10/25/16 08:02 10/29/16 09:24 Norvasc - PO 10 mg DAILY [facility] Administration Aspirin 81 mg 10/23/16 10:00 10/29/16 09:24 Asa - PO 81 mg DAILY JERICA Administration Carvedilol 6.25 mg 10/25/16 08:02 10/29/16 09:24 Coreg - PO 6.25 mg BID JERICA Administration Docusate Sodium 300 mg 10/28/16 22:00 10/28/16 21:33 Colace - PO 300 mg HS JERICA Administration Folic Acid 1 mg 10/23/16 11:15 10/29/16 09:23 Folic Acid - PO 1 mg DAILY J[facility]ICA Administration Heparin Sodium (Porcine) 5,000 unit 10/22/16 22:00 10/29/16 09:24 Heparin - SQ 5,000 unit BID J[facility]ICA Administration Hydralazine HCl 25 mg 10/29/16 10:00 10/29/16 09:23 Apresoline - PO 25 mg BID J[facility] Administration Meclizine HCl 25 mg 10/26/16 20:24 10/29/16 09:24 Antivert - PO 25 mg Q8H PRN Administration Ondansetron HCl 4 mg 10/26/16 15:29 10/29/16 07:03 Zofran Injection IVPB 4 mg Q8H PRN Administration NAUSEA AND/OR VOMITING Oxycodone HCl 5 mg 10/28/16 17:11 10/28/16 17:32 Roxicodone - PO 5 mg Q6H PRN Administration PAIN 6-10 Oxycodone HCl 10 mg 10/28/16 20:54 10/28/16 21:33 Roxicodone - PO 10 mg Q4H PRN Administration PAIN Polyethylene Glycol 17 gm 10/27/16 10:00 10/29/16 09:30 Miralax (For Daily Use) - PO Not Given DAILY [facility] Ranitidine HCl 150 mg 10/23/16 22:00 10/29/16 09:24 Zantac - PO 150 mg BID [facility] Administration Sucralfate 1 gm 10/23/16 22:00 10/29/16 09:23 Carafate - PO 1 gm BID [facility] Administration Venlafaxine HCl 37.5 mg 10/22/16 18:45 10/29/16 09:27 Effexor Xr - PO 37.5 mg DAILY [facility] Administration CBC, BMP 10/29/16 06:00 10/29/16 06:00 cxr: clear ekg: nsr, lvh, no ischemic changes prior echo: mild lv dilation, low normal lv systolic fn. nl rv. mild lae. mod mr, 1+ ar/tr echo 10/2016: mild conc lvh, mod lve, low nl lvef, mod lae, nl rv, sev mr, mod tr, mild ar, mild-mod pr, rvsp 50-60 a/p: 69 year old woman with a history of HTN, sickle cell disease, borderline cardiomyopathy, PAF vs PSVT presents with abdominal/chest pain/sob and presumed sickle cell crisis. Sickle Cell crisis/anemia -as per Med/Heme Chest pain - does not seem cardiac, improved. Chronic x 1 month and typical of prior sickle cell episodes. EKG without ischemic changes. trop with intermediate elevation with flat trend and nl ck not consistent with acs. Severe mitral regurgitation, Mild LV dysfunction: -reportedly morphologically normal MV with eccentric MR that appears severe -low-normal LVEF since 12/29 study, MR reportedly moderate then--appears that LV dysfunction predates hemodynamically signif MR burden -euvolemic, no signs of symptomatic chf/mr, no audible murmur -she has IIa indication for MVR in the presence of resting pulm artery pressure >50 (and ? of PAFib on prior admit)--needs to be discussed with pt/family once sickle cell crisis is better treated -however, given eccentric nature of the jet, it is difficult to accurately diagnose severity and needs repeat outpatient study (including pulmonary vein doppler) and possibly BALBIR--non-urgent and should be done as outpt with us after hosp d/c HTN - started on coreg, lisinopril, and norvasc here - ? pain from sickle cell crisis contributing - bp better controlled now PAF vs PSVT - self limited on prior admit. - tele here showing brief runs of likely PAT for which coreg increased. no further need for tele - on prior admit couldn't r/o PAF. Family declined empiric AC and likely not a good candidate regardless given sickle cell anemia with hgb in 6s here. Did not f/u with cards for event monitoring. CKD vs nancy - stable, unclear baseline - ok for fluids with close monitoring for signs of chf, if needed
[2016-10-29] MEDS: oxyCODONE HCL 5 MG TABLET PO PRN ×2 (11:45→18:16)
[2016-10-29] MEDS: ACETAMINOPHEN 325 MG TABLET (FP) PO PRN ×2 (11:47→18:17)
--- NOTE | 2016-10-29 15:35 | CONSULT ---
Consult - text type - Consultation Consultation Note: Renal Consult for YOLY/CKD and Hyperkalemia This is a 71 year old woman with PMhx of Sickle Beta Thalassemia, Hypertension, GERD who presented with Chest pain back pain and admitted for sickle Crisis with BUN/Cr of 40/1.5 and K of 5.3. Pt denies any history of CKD or Kidney stones. No contrast exposure. Has flank pain but US of kidney showed no stones or obstruction. Pt was on ACEi. Does have on going hemolysis as per Heme. On oral pain meds. No NSAID exposure. No KUMAR, chest pain, Sob, N/V/D, Fever or chills. PMhx: as above Allergies: NKDA Family Hx: NC Social Hx: No T/A/D ROS: as per HPI Home Meds: Home Medications Medication Instructions Recorded Aspirin [ASA -] 81 mg PO DAILY #30 tab.chew 01/01/16 Venlafaxine HCl [Effexor -] 37.5 mg PO DAILY 10/22/16 Vital Signs Temperature 98.7 F 10/29/16 14:44 Pulse Rate 61 10/29/16 14:44 Respiratory Rate 18 10/29/16 14:44 Blood Pressure 158/64 10/29/16 14:44 O2 Sat by Pulse Oximetry (%) 97 10/29/16 09:00 Intake & Output 10/26/16 10/27/16 10/28/16 10/29/16 23:59 23:59 23:59 23:59 Intake Total 410 1245 2120 620 Output Total 2 Balance 408 1245 2120 620 Gen: NAD, awake and alert HEENT: NC/AT, MMM, No JVD CVS: RRR, No M/R Lungs: CTA, no rales or wheeze Abd: soft NT/ND, +BS Ext: no clubbing, edema or cyanosis : No bladder distension, no CVA tenderness Neuro: AAOx3, no focal defects CBC, BMP 10/29/16 06:00 10/29/16 06:00 Current Medications Acetaminophen (Tylenol -) 650 mg PO Q4H PRN PRN Reason: PAIN Stop: 10/31/16 20:53 Last Admin: 10/29/16 11:47 Dose: 650 mg Amlodipine Besylate (Norvasc -) 10 mg PO DAILY [facility] Last Admin: 10/29/16 09:24 Dose: 10 mg Aspirin (Asa -) 81 mg PO DAILY [facility] Last Admin: 10/29/16 09:24 Dose: 81 mg Carvedilol (Coreg -) 6.25 mg PO BID [facility] Last Admin: 10/29/16 09:24 Dose: 6.25 mg Docusate Sodium (Colace -) 300 mg PO HS [facility] Last Admin: 10/28/16 21:33 Dose: 300 mg Folic Acid (Folic Acid -) 1 mg PO DAILY [facility] Last Admin: 10/29/16 09:23 Dose: 1 mg Heparin Sodium (Porcine) (Heparin -) 5,000 unit SQ BID [facility] Last Admin: 10/29/16 09:24 Dose: 5,000 unit Hydralazine HCl (Apresoline -) 25 mg PO BID [facility] Last Admin: 10/29/16 09:23 Dose: 25 mg Meclizine HCl (Antivert -) 25 mg PO Q8H PRN Last Admin: 10/29/16 09:24 Dose: 25 mg Ondansetron HCl (Zofran Injection) 4 mg IVPB Q8H PRN PRN Reason: NAUSEA AND/OR VOMITING Last Admin: 10/29/16 07:03 Dose: 4 mg Oxycodone HCl (Roxicodone -) 5 mg PO Q6H PRN PRN Reason: PAIN 6-10 Last Admin: 10/28/16 17:32 Dose: 5 mg Oxycodone HCl (Roxicodone -) 10 mg PO Q4H PRN PRN Reason: PAIN Last Admin: 10/29/16 11:45 Dose: 10 mg Polyethylene Glycol (Miralax (For Daily Use) -) 17 gm PO DAILY [facility] Last Admin: 10/29/16 09:30 Dose: Not Given Ranitidine HCl (Zantac -) 150 mg PO BID [facility] Last Admin: 10/29/16 09:24 Dose: 150 mg Sucralfate (Carafate -) 1 gm PO BID [facility] Last Admin: 10/29/16 09:23 Dose: 1 gm Venlafaxine HCl (Effexor Xr -) 37.5 mg PO DAILY [facility] Last Admin: 10/29/16 09:27 Dose: 37.5 mg A/P 71 year old woman with PMhx of Sickle Beta Thalassemia, Hypertension, GERD who presented with Chest pain back pain and admitted for sickle Crisis with BUN/Cr of 40/1.5 and K of 5.3 #YOLY vs. CKD with mild hyperkalemia CKD could be secondary to hypertensive nephrosclerosis vs. vaso-occlusive disease leading to renal ischemia and r/o Renal US showed small kidneys w/o obstruction UA with 2+ protein, check UPCR Hyperkalemia likely secondary to CKD +/- hemolysis PT should be on Low K diet (education to be provided by nursing staff) Avoid RORO or ARB for now given mild hyperkalemia Oral fluid intake as tolerated Outpatient follow up for monitoring of renal function (office contact information provided) avoid nsaids, IV contrast #Sickle Cell Crisis Pain control with opiods Oral fluid intake Heme Follow up no acute need for transfusion at this time #Hypertension No RORO or ARB Change amlodpine to Nifedpine XL 30mg Daily Goal BP < 140/90 #GERD On carafate Seen by GI Thank you Will follow Percy Gonzalez DO
[2016-10-29 18:13] VITALS: BP 153/62; PULSE 67; TEMP 97.5
[2016-10-30] MEDS ORDERED: NIFEdipine E.R. 30 MG TABLET (FP) PO SCH (10:00)
--- NOTE | 2016-12-20 17:49 | DS ---
Physical Examination Vital Signs: Vital Signs Temperature 97.5 F L 10/29/16 18:00 Pulse Rate 67 10/29/16 18:00 Respiratory Rate 18 10/29/16 18:00 Blood Pressure 153/62 10/29/16 18:00 O2 Sat by Pulse Oximetry (%) 97 10/29/16 09:00 Constitutional: Yes: No Distress Neck: Yes: Supple Cardiovascular: Yes: WNL, Regular Rate and Rhythm Respiratory: Yes: WNL, Regular, CTA Bilaterally Gastrointestinal: Yes: WNL, Normal Bowel Sounds, Soft Labs: CBC, BMP 10/29/16 06:00 10/29/16 06:00 Discharge Summary Reason For Visit: ABD PAIN,SICKLE CELL CRISIS Current Active Problems A-fib (Acute) CHF (congestive heart failure) (Acute) Chest pain in adult (Acute) Chronic pain (Acute) Dehydration (Acute) Depression (Acute) Weakness (Acute) Hospital Course: Pt is a 71 y/o female w/ most of the history being taken from the chart bc pt does not speak equatorial guinean clearly. Pt has a PMH significant for HTN, parosymal afib/PSVT, cardiomyopathy, sickle cell disease, depression and GERD. Pt presented to the ER 2-3 day h/o abdominal pain wc is mostly LUQ, nonradiating and associated w/ nausea. In the ER pt found to have H/H of 6.1/18.4 and troponin of 0.09. Pt was transfused PRBC's and treated for sickle cell crisis Condition: Fair - Instructions Diet, Activity, Other Instructions: low potassium diet 2 gram sodium diet See Dr Villela in 1 week [phone] Referrals: Parag Montalvo MD [Primary Care Provider] - Rodrick Sherman MD [Staff Physician] - Sharifa Villela MD [Staff Physician] - Percy Gonzalez MD [Staff Physician] - Christofer Will MD [Staff Physician] - Disposition: HOME - Home Medications Comprehensive Discharge Medication List: Ambulatory Orders Aspirin [ASA -] 81 mg PO DAILY #30 tab.chew 01/01/16 Venlafaxine HCl [Effexor -] 37.5 mg PO DAILY 10/22/16 Amlodipine Besylate [Norvasc -] 10 mg PO DAILY #30 tablet 10/29/16 Aspirin [ASA -] 81 mg PO DAILY tab.chew 10/29/16 Carvedilol [Coreg -] 6.25 mg PO BID #60 tablet 10/29/16 Docusate Sodium [Colace -] 300 mg PO HS 10/29/16 Docusate Sodium [Colace -] 300 mg PO HS #30 10/29/16 Folic Acid - 1 mg PO DAILY tablet 10/29/16 Hydralazine HCl [Apresoline -] 25 mg PO BID #60 tablet 10/29/16 Meclizine HCl [Antivert -] 25 mg PO Q8H PRN #30 tablet 10/29/16 Nifedipine ER [Procardia XL -] 30 mg PO DAILY #30 10/29/16 Oxycodone HCl/Acetaminophen [Percocet 10-325 mg Tablet] 1 each PO TID PRN #30 tablet MDD 3 10/29/16 Polyethylene Glycol 3350 [Miralax 119 gm Btl -] 17 gm PO DAILY #30 bottle Ranitidine [Zantac -] 150 mg PO BID #60 tablet 10/29/16 Sucralfate [Carafate -] 1 gm PO BID #60 tablet 10/29/16 Venlafaxine HCl ER [Effexor Xr -] 37.5 mg PO DAILY 10/29/16
== END 2016-10-29 20:45 | disposition home or self-care (01) | DRG 663 ==
LOC: JER 08:29 → JERBED 11:18 → J4S 20:39
PROVIDERS: ADMIT Internal Medicine; ATTEND Internal Medicine
PROC: 30233N1 Transfusion of Nonautologous Red Blood Cells into Peripheral Vein, Percutaneous Approach (ICD-10-PCS; principal; 2016-10-22)
DX: D57.40 Sickle-cell thalassemia without crisis (principal); K21.9 Gastro-esophageal reflux disease without esophagitis; I48.91 Unspecified atrial fibrillation; I47.1 Supraventricular tachycardia; I42.8 Other cardiomyopathies; I48.0 Paroxysmal atrial fibrillation; R42 Dizziness and giddiness; I34.0 Nonrheumatic mitral (valve) insufficiency; N17.9 Acute kidney failure, unspecified; I12.9 Hypertensive chronic kidney disease with stage 1 through stage 4 chronic kidney disease, or unspecified chronic kidney disease; N18.9 Chronic kidney disease, unspecified; E87.5 Hyperkalemia; N27.1 Small kidney, bilateral
CPT/HCPCS: 36415; 36430; 71010-TC; 71250-TC; 72192-TC; 73502-TC-RT; 76700-TC; 76775-TC; 80053; 81003; 81015; 82272; 82550; 82553; 82570; 82607; 82728; 82747; 83540; 83550; 83615; 83690; 83735; 84100; 84132; 84156; 84484; 85014; 85025; 85027; 85044; 85384; 85610; 85730; 86850; 86900; 86901; 86922; 87040; 87086; 93005; 93010; 93306-TC; 99285-25; G0008; J1644; P9038; P9058; Q2037

== ENCOUNTER 2016-11-08 18:16 | Emergency (ER) | payer OTHER ==
[2016-11-08 18:24] VITALS: BP 142/63; PULSE 75; TEMP 99.2; BMI 20.2
--- NOTE | 2016-11-08 18:50 | PDOC ---
History of Present Illness - General History Source: Patient, Family, Old Records Exam Limitations: No Limitations - History of Present Illness Initial Comments: 11/08/16 19:06 The patient is a 71 year old female, accompanied by daughter, with a significant past medical history of hypertension, GERD, sickle/beta thalassemia disease, a-fib who presents to the Emergency Department today for further evaluation of low hemoglobin and high potassium levels. The daughter states that she received a phone call from Dr. Sherman regarding the results of her recent blood work. The doctor sent the patient to the Emergency department for further evaluation. PCP: Dr. Sherman [phone] <Antonio Lane - Last Filed: 11/08/16 20:55> <Kiah Price - Last Filed: 11/09/16 01:29> - General Chief Complaint: Revisit,Radiology Variance Stated Complaint: REVISIT/LAB VARIANCE Time Seen by Provider: 11/08/16 18:38 Past History <Antonio Lane - Last Filed: 11/08/16 20:55> - Past Medical History Anemia: Yes (sickle cell) GI Disorders: Yes (gerd, H PYLORI) HTN: Yes Suicide Attempt (Hx): No - Immunization History Immunization Up to Date: No - Psycho/Social/Smoking Cessation Hx Anxiety: No Suicidal Ideation: No Smoking Status: No Smoking History: Never smoked Have you smoked in the past 12 months: No Number of Cigarettes Smoked Daily: 0 Hx Alcohol Use: No Drug/Substance Use Hx: No Substance Use Type: None Hx Substance Use Treatment: No <Kiah Price - Last Filed: 11/09/16 01:29> - Past Medical History Allergies/Adverse Reactions: Allergies Allergy/AdvReac Type Severity Reaction Status Date / Time fentanyl Allergy Severe Difficulty Verified 11/08/16 18:24 Breathing morphine Allergy Severe Difficulty Verified 11/08/16 18:24 Breathing Home Medications: Ambulatory Orders Aspirin [ASA -] 81 mg PO DAILY #30 tab.chew 01/01/16 Venlafaxine HCl [Effexor -] 37.5 mg PO DAILY 10/22/16 Amlodipine Besylate [Norvasc -] 10 mg PO DAILY #30 tablet 10/29/16 Aspirin [ASA -] 81 mg PO DAILY tab.chew 10/29/16 Carvedilol [Coreg -] 6.25 mg PO BID #60 tablet 10/29/16 Docusate Sodium [Colace -] 300 mg PO HS 10/29/16 Docusate Sodium [Colace -] 300 mg PO HS #30 10/29/16 Folic Acid - 1 mg PO DAILY tablet 10/29/16 Hydralazine HCl [Apresoline -] 25 mg PO BID #60 tablet 10/29/16 Meclizine HCl [Antivert -] 25 mg PO Q8H PRN #30 tablet 10/29/16 Nifedipine ER [Procardia XL -] 30 mg PO DAILY #30 10/29/16 Oxycodone HCl/Acetaminophen [Percocet 10-325 mg Tablet] 1 each PO TID PRN #30 tablet MDD 3 10/29/16 Polyethylene Glycol 3350 [Miralax 119 gm Btl -] 17 gm PO DAILY #30 bottle Ranitidine [Zantac -] 150 mg PO BID #60 tablet 10/29/16 Sucralfate [Carafate -] 1 gm PO BID #60 tablet 10/29/16 Venlafaxine HCl ER [Effexor Xr -] 37.5 mg PO DAILY 10/29/16 Review of Systems - Review of Systems Able to Perform ROS?: Yes Comments:: 11/08/16 19:06 CONSTITUTIONAL: Absent: fever, chills, diaphoresis, generalized weakness, malaise, loss of appetite HEENT: Absent: rhinorrhea, nasal congestion, throat pain, throat swelling, difficulty swallowing, mouth swelling, ear pain, eye pain, visual Changes CARDIOVASCULAR: Absent: chest pain, syncope, palpitations, irregular heart rate, lightheadedness , peripheral edema RESPIRATORY: Absent: cough, shortness of breath, dyspnea with exertion, orthopnea, wheezing, stridor, hemoptysis GASTROINTESTINAL: Absent: abdominal pain, abdominal distension, nausea, vomiting, diarrhea, constipation, melena, hematochezia GENITOURINARY: Absent: dysuria, frequency, urgency, hesitancy, hematuria, flank pain, genital pain MUSCULOSKELETAL: Absent: myalgia, arthralgia, joint swelling SKIN: Absent: rash, itching, pallor HEMATOLOGIC/IMMUNOLOGIC: Present: Low hemoglobin, high potassium Absent: easy bleeding, easy bruising, lymphadenopathy, frequent infections ENDOCRINE: Absent: unexplained weight gain, unexplained weight loss, heat intolerance, cold intolerance NEUROLOGIC: Absent: headache, focal weakness or paresthesias, dizziness, unsteady gait, seizure, mental status changes, bladder or bowel incontinence PSYCHIATRIC: Absent: anxiety, depression, suicidal or homicidal ideation, hallucinations. <Antonio Lane - Last Filed: 11/08/16 20:55> *Physical Exam - Vital Signs Last Vital Signs Temp Pulse Resp BP Pulse Ox 99.2 F 75 20 142/63 97 11/08/16 18:20 11/08/16 18:20 11/08/16 18:20 11/08/16 18:20 11/08/16 18:20 - Physical Exam Comments: 11/08/16 19:06 GENERAL: Well developed, well nourished. Awake and alert. No acute distress. HEENT: Normocephalic, atraumatic. PERRLA, EOMI. No conjunctival pallor. Sclera are non- icteric. Moist mucous membranes. Oropharynx is clear. NECK: Supple. Full ROM. No JVD. Carotid pulses 2+ and symmetric, without bruits. No thyromegaly. No lymphadenopathy. CARDIOVASCULAR: Regular rate and rhythm. No murmurs, rubs, or gallops. Distal pulses are 2+ and symmetric. PULMONARY: No evidence of respiratory distress. Lungs clear to auscultation bilaterally. No wheezing, rales or rhonchi. ABDOMINAL: Soft. Non-tender. Non-distended. No rebound or guarding. No organomegaly. Normoactive bowel sounds. MUSCULOSKELETAL Normal range of motion at all joints. No bony deformities or tenderness. No CVA tenderness. EXTREMITIES: No cyanosis. No clubbing. No edema. No calf tenderness. SKIN: Warm and dry. Normal capillary refill. No rashes. No jaundice. NEUROLOGICAL: Alert, awake, appropriate. Cranial nerves 2-12 intact. No deficits to light touch and temperature in face, upper extremities and lower extremities. No motor deficits in the in face, upper extremities and lower extremities. Normoreflexic in the upper and lower extremities. Normal speech. Toes are down-going bilaterally. Gait is normal without ataxia. PSYCHIATRIC: Cooperative. Good eye contact. Appropriate mood and affect. <Antonio Lane - Last Filed: 11/08/16 20:55> - Vital Signs Last Vital Signs Temp Pulse Resp BP Pulse Ox 99.2 F 75 20 142/63 97 11/08/16 18:20 11/08/16 18:20 11/08/16 18:20 11/08/16 18:20 11/08/16 18:20 <Kiah Price - Last Filed: 11/09/16 01:29> ED Treatment Course - LABORATORY CBC & Chemistry Diagram: 11/08/16 19:21 11/08/16 19:21 - RADIOLOGY Radiology Studies Ordered: 11/08/16 20:55 1. CXR IMPRESSION: No official read. No acute findings <Antonio Lane - Last Filed: 11/08/16 20:55> - LABORATORY CBC & Chemistry Diagram: 11/08/16 19:21 11/08/16 19:21 <Kiah Price - Last Filed: 11/09/16 01:29> Medical Decision Making - Medical Decision Making 11/08/16 20:[address] Sherman <Antonio Lane - Last Filed: 11/08/16 20:55> - Medical Decision Making 11/09/16 01:18 this pt has a h/o sickle cell anemia, mild chronic mild renal insufficiency and was recently admitted for sickle cell crisis and anemia.At that time her hbg=6/ hct=18 and she received blood transfusions -last she had blood drawn at her agricultural research technologist's office, DR SHERMAN and at that lab showed her potassium was over six ,so he called pt and told her to come to ER to have repeat labs done -tonight her k=5.6 and she was given kayexalate and she was told to have her labs done again later this week -she has a referral to Dr Percy Gonzalez office I spoke with DR SHERMAN and reviewed lab results and pt discharged 11/09/16 01:23 <Kiah Price - Last Filed: 11/09/16 01:29> *DC/Admit/Observation/Transfer - Attestations Scribe Attestion: 11/08/16 19:07 Documentation prepared by Antonio Lane, acting as emergency medical technician for Kiah Price MD. <Antonio Lane - Last Filed: 11/08/16 20:55> <Kiah Price - Last Filed: 11/09/16 01:29> Diagnosis at time of Disposition: Renal insufficiency, mild, Hyperkalemia, Chronic anemia - Discharge Dispostion Disposition: HOME Condition at time of disposition: Stable - Referrals Referrals: Percy Gonzalez MD [Staff Physician] - - Patient Instructions Printed Discharge Instructions: DI for Hyperkalemia Additional Instructions: It's very important to have your blood work done later this week because your potassium was elevated today. Please follow up with Dr Percy Gonzalez (nephrology)
[2016-11-08 19:36] LABS: BASOPHIL 0.7 % (0-2.0); MCH 25.8 pg (25.7-33.7); MCHC 32.4 g/dl (32.0-36.0); MEAN CELL VOLUME 79.8 fl (80-96); MEAN PLT VOLUME 8.9 fl (7.5-11.1); NEUTROPHILS 62.6 % (42.8-82.8); PLATELET COUNT 246 K/MM3 (134-434); RDW 19.3 % (11.6-15.6); WHITE BLOOD COUNT 6.7 K/mm3 (4.0-10.0)
[2016-11-08 20:00] LABS: ALBUMIN 4.4 g/dl (3.4-5.0); CALCIUM 8.9 mg/dL (8.5-10.1); CREATININE 1.6 mg/dL (0.55-1.02)
[2016-11-08 20:03] LABS: BILIRUBIN,TOTAL 0.5 mg/dL (0.2-1.0); TOT PROT 7.9 g/dl (6.4-8.2)
[2016-11-08] MEDS ORDERED: SODIUM POLYSTYRENE SULFONATE 15 GM/60 ML BOTTLE PO ONE (20:24)
[2016-11-08] MEDS ORDERED: SODIUM POLYSTYRENE SULFONATE 15 GM/60 ML BOTTLE ONE (20:33)
== END 2016-11-08 21:03 | disposition home or self-care (01) ==
LOC: JER 18:16
DX: E87.5 Hyperkalemia (principal); D57.1 Sickle-cell disease without crisis; N28.9 Disorder of kidney and ureter, unspecified; I10 Essential (primary) hypertension; I48.91 Unspecified atrial fibrillation; K21.9 Gastro-esophageal reflux disease without esophagitis
CPT/HCPCS: 36415; 80053; 85025; 99281-25